=== PATIENT | female | born 1955 | race Caucasian/White ===

== ENCOUNTER 2020-08-18 06:57 | Outpatient (NON) | payer MEDICARE, SELFPAY ==
[2020-08-18 20:03] LABS: SARS-CoV-2 RNA PCR Negative
== END 2020-08-18 06:58 ==
PROVIDERS: PCP Family Medicine Adolescent Medicine; Visit Provider Physician Assistant
DX: R05 Cough (principal); Z20.828 Contact with and (suspected) exposure to other viral communicable diseases
CPT/HCPCS: 87635; C9803; U0003

== ENCOUNTER 2020-08-25 12:55 | Outpatient (CLI) | payer MEDICARE, SELFPAY ==
[2020-08-25 14:10] LABS: Cholesterol 151 mg/dL (0-200); HDL Direct 61 mg/dL; Triglycerides 104 mg/dL (<150)
[2020-08-25 14:22] LABS: LDL Cholesterol Direct 75 mg/dL
[2020-08-25 14:42] LABS: Thyroid Stimulating Hormone 0.512 uIU/mL (0.465-4.680)
== END 2020-08-25 12:56 | disposition home or self-care (01) ==
PROVIDERS: PCP Family Medicine Adolescent Medicine; Visit Provider Family Medicine Adolescent Medicine
DX: E78.2 Mixed hyperlipidemia (principal); E03.9 Hypothyroidism, unspecified
CPT/HCPCS: 36415; 80061; 84443

== ENCOUNTER 2020-12-22 10:13 | Outpatient (CLI) | payer MEDICARE, SELFPAY ==
--- NOTE | ~2020-12-22 | MM_ITS ---
EXAMINATION: MM screening miryam RT w todd HISTORY: Screening. Left breast mastectomy for breast cancer. TECHNIQUE: Craniocaudal and mediolateral oblique 3-D tomosynthesis images were obtained and synthetic 2-D images were generated. CAD analysis was submitted and interpreted. COMPARISON: Comparison to multiple prior studies sequentially, with oldest reviewed study dated 07/25. BREAST PARENCHYMAL COMPOSITION: There are scattered areas of fibroglandular density. FINDINGS: Developing asymmetry mid lateral aspect of the right breast. There are no suspicious calcif ications or architectural distortion. IMPRESSION: 1. Focal asymmetry mid lateral aspect of the right breast. 2. Additional mammographic views and possible breast ultrasound are recommended. BI-RADS Category 0: Incomplete: Needs additional imaging evaluation. Reviewed, dictated and finalized at location A. UM PREPARATOR IMPRESSION: 1. Focal asymmetry mid lateral aspect of the right breast. 2. Additional mammographic views and possible breast ultrasound are recommended . BI-RADS Category 0: Incomplete: Needs additional imaging evaluation.
== END 2020-12-22 10:14 | disposition home or self-care (01) ==
LOC: ANHIMG 10:17
PROVIDERS: PCP Family Medicine Adolescent Medicine; Visit Provider Internal Medicine Hematology & Oncology
DX: Z12.31 Encounter for screening mammogram for malignant neoplasm of breast (principal); R92.8 Other abnormal and inconclusive findings on diagnostic imaging of breast
CPT/HCPCS: 77063; 77067

== ENCOUNTER 2021-02-05 12:42 | Outpatient (CLI) | payer MEDICARE, SELFPAY ==
--- NOTE | ~2021-02-05 | MMUS_ITS ---
EXAMINATION: MM diagnostic mammo unilat RT, US breast RT limited HISTORY: Focal asymmetry in the mid lateral right breast on 12/22/2020 screening mammogram TECHNIQUE: Additional 3-D tomosynthesis images of the right breast were performed and synthetic 2-D i mages were generated. Rolled medial and rolled lateral craniocaudal views of right breast. CAD analys is was submitted and interpreted. High resolution upper outer and lower-outer quadrants right breast ultrasound was performed. COMPARISON: 12/22/2020 right digital mammogram FINDINGS: MAMMOGRAPHIC FINDINGS: Possible spiculated mass approximately 5 mm dimension with a couple of benign-appearing central calci fications is suggested in the outer mid right breast (mL Tomosynthesis image 10/62). The spiculated m ass is not confirmed on other MLO and cc views and may simply represent fibroglandular stroma. There is mildly nodular appearing fibroglandular stroma. Ultrasound of the upper outer and lower-outer quadrants of the right breast was therefore performed. ULTRASOUND: No suspicious mass or shadowing, cyst or other significant sonographic abnormalities detected in the outer half of the right breast. IMPRESSION: 1. No mammographic evidence of malignancy 2. Routine annual mammographic screening is recommended. BI-RADS Category 2: Benign finding(s). Reviewed, dictated and finalized at location A. HER WRINGER OPERATOR IMPRESSION: 1. No mammographic evidence of malignancy 2. Routine annual mammographic screening is recommended. BI-RADS Category 2: Benign finding(s).
== END 2021-02-05 12:43 | disposition home or self-care (01) ==
PROVIDERS: PCP Family Medicine Adolescent Medicine; Visit Provider Internal Medicine Hematology & Oncology
DX: R92.8 Other abnormal and inconclusive findings on diagnostic imaging of breast (principal)
CPT/HCPCS: 76642; 77065

== ENCOUNTER → 2021-03-22 04:07 | Outpatient (CLI) | payer MEDICARE, SELFPAY ==
[2021-03-22 19:57] LABS: SARS-CoV-2 RNA PCR Negative
== END ==
PROVIDERS: PCP Family Medicine Adolescent Medicine; Visit Provider Surgery
DX: Z01.812 Encounter for preprocedural laboratory examination (principal); Z20.822 Contact with and (suspected) exposure to COVID-19
CPT/HCPCS: C9803; U0003; U0005

== ENCOUNTER 2021-03-22 11:29 | Outpatient (CLI) | payer MEDICARE, SELFPAY ==
--- NOTE | 2021-03-22 11:33 | ECG_ITS ---
Measurements Intervals [place] Rate: 71 P: 50 SC: 186 QRS: 15 QRSD: 91 T: 67 QT: 416 QTc: 455 Interpretive Statements SINUS RHYTHM INCOMPLETE RIGHT BUNDLE BRANCH BLOCK BASELINE ARTIFACT- I, III, AVL, V1 BORDERLINE ECG Electronically Signed On 03-22-2021 11:55:36 CDT by Jhonny Brice D.O.
[2021-03-22 13:30] LABS: Basophils Absolute Auto 0.1 K/mm3 (0.0-0.1); Basophils Percent Auto 0.5 % (0.2-1.2); Eosinophils Absolute Auto 0.3 K/mm3 (0-0.3); Eosinophils Percent Auto 3.1 % (0-4.4); Hematocrit 43.3 % (37.0-47.0); Hemoglobin 14.9 g/dL (12.0-15.0); Immature Granulocyte Absolute 0.04 K/mm3 (0.00-0.031); Immature Granulocyte Percent A 0.4 % (0-0.5); Lymphocytes Absolute Auto 4.37 K/mm3 (0.9-3.2); Lymphocytes Percent Auto 43.2 % (18.3-44.2); Mean Corpuscular HGB Conc 34.4 g/dl (32-36); Mean Corpuscular Hemoglobin 33.8 pg (26-34); Mean Corpuscular Volume 98.2 fl (80-100); Mean Platelet Volume 9.7 fl (7.4-10.4); Monocytes Absolute Auto 0.9 K/mm3 (0.1-0.6); Monocytes Percent Auto 8.6 % (2.6-8.5); Neutrophils Absolute Auto 4.5 K/mm3 (1.3-6.7); Neutrophils Percent Auto 44.2 % (45.5-73.1); Platelet Count Result 261 k/mm3 (150-375); Red Blood Count 4.41 M/mm3 (4.2-5.4); Red Cell Distribution Width 12.2 % (11.5-14.5); White Blood Count 10.1 K/mm3 (4.5-10.0)
[2021-03-22 13:44] LABS: INR 0.9; Prothrombin Time 12.7 Seconds (11.1-14.7)
[2021-03-22 13:45] LABS: Partial Thromboplastin Time 31.8 SECONDS (22.3-36.8)
== END 2021-03-22 11:30 | disposition home or self-care (01) ==
LOC: ANHSURGERY 11:32
PROVIDERS: PCP Family Medicine Adolescent Medicine; Visit Provider Surgery
DX: Z01.818 Encounter for other preprocedural examination (principal); C50.919 Malignant neoplasm of unspecified site of unspecified female breast; I45.10 Unspecified right bundle-branch block; Z51.81 Encounter for therapeutic drug level monitoring; Z79.899 Other long term (current) drug therapy
CPT/HCPCS: 36415; 85025; 85610; 85730; 93005; C9803; U0003; U0005

== ENCOUNTER 2021-03-25 01:28 | Day surgery (SDC) | payer MEDICARE, SELFPAY ==
[2021-03-19 09:43] VITALS: BMI 26.6
--- NOTE | 2021-03-25 12:01 | SUR.PREOP ---
PT STATES SHE IS HAVING HER PORTACATH REMOVED. NOT INSERTED. CALLED JUANJOSE Cotter, SPORTS LAWYER AND [employer]ER [employer]URE RN
[2021-03-25 12:03] VITALS: BP 119/59; PULSE 94; RESP 20; TEMP 36.3; O2SAT 99; BMI 27.4
--- NOTE | 2021-03-25 12:25 | SUR.PREOP ---
PT STATES SHE DOES NOT NEED A LIMB ALERT.
[2021-03-25] MEDS: LACTATED RINGERS 1,000 ML 30 ML IV CONT (12:26)
[2021-03-25] MEDS: KETOROLAC 15 MG/ML VIAL (*BKC) IV PUSH (12:26)
--- NOTE | 2021-03-25 12:30 | SUR.PREOP ---
DR GOODSON IN TO SPEAK TO PT
--- NOTE | 2021-03-25 12:42 | PM.IMHP ---
H&P: HPI History of Present Illness Date/Time: 03/25/21 12:42 Pt is a 65 y/o F presenting for removal of R SCV VAD. Pt had VAD placed in late 2016 for adjuvant chemotx for L breast cancer. Pt reports she has had no issues c VAD, and last had it flushed about 1 mo ago. Chief Complaint: L breast cancer Review of Systems Review of Systems: All systems reviewed & are unremarkable except as noted in HPI and below PMFSH Past Medical History Medical History (Updated 03/25/21 @ 12:45 by Malcom Thomas MD) Hyperlipidemia Hypertension Hypothyroid Family History Family History Other Family history of malignant neoplasm Hypertension Social History Social History Smoking packs per day: 0.5 Smoking cigarettes per day: 10.0 Years smoked: 30 Smoking pack-years: 15.00 Smoking status: Current every day smoker Tobacco type: cigarettes Alcohol intake: never Substance use: never Substance use type: does not use Living arrangements: with family Spiritual care concerns: No Meds Home Medications and Allergies Home Medications Medication Instructions Recorded Confirmed Type levothyroxine 175 mcg PO HS 09/13/19 03/25/21 History metoprolol tartrate 50 mg PO BID 09/13/19 03/25/21 History trazodone 150 mg PO HS 09/13/19 03/25/21 History acetaminophen 1,300 mg PO DAILY 03/19/21 03/25/21 History anastrozole 1 mg PO HS 03/19/21 03/25/21 History atorvastatin 20 mg PO HS 03/19/21 03/25/21 History calcium 600 mg PO HS 03/19/21 03/19/21 History ferrous sulfate [FeroSul] 325 mg PO HS 03/19/21 03/25/21 History Allergies Allergy/AdvReac Type Severity Reaction Status Date / Time Penicillins Allergy Unknown Swelling Verified 03/25/21 11:45 Vital Signs Vital Signs - 24 hr 03/25/21 12:03 Temperature 36.3 C L Pulse Rate 94 Respiratory Rate 20 Blood Pressure 119/59 L Pulse Oximetry 99 Exam Const: General: cooperative, comfortable and no acute distress Orientation/consciousness: patient oriented x3 Limitations: no limitations Chest: Other: R chest VAD - C/D/I Resp: Effort & Inspection: normal respiratory effort Auscultation: clear to auscultation bilaterally Cardio: Rate: regular rate Rhythm: regular rhythm GI: Inspection: normal to inspection GI Palp: Yes Soft to palpation and No Tenderness to palpation present (GI) Assessment and Plan Assessment and plan (1) Malignant neoplasm of upper-inner quadrant of left breast in female, estrogen receptor positive: Code(s): C50.212 - Malignant neoplasm of upper-inner quadrant of left female breast; Z17.0 - Estrogen receptor positive status [ER+] Status: Acute Assessment and Plan: s/p adjvant chemotx, will remove VAD
--- NOTE | 2021-03-25 12:47 | WPDHPUPDATE1 ---
History and Physical Update Update Date/Time: 03/25/21 12:47 History and Physical has been reviewed, including an updated exam of the patient. There are NO changes in the patient's condition. Risks, benefits, and alternatives have been discussed and questions answered. Patient agrees to proceed with procedure.
--- NOTE | 2021-03-25 12:49 | WPDANESEPPF ---
Anes - Initial Pre Proc Eval Procedure: Operation Date: 03/25/21 13:30 Proposed Procedures p Insertion Leeanna Cath - Anya Bojorquez MD Date/Time: 03/25/21 12:49 Surgeon: Anya Bojorquez MD Pre Op Diagnosis: Breast CA Patient Data Age: 65 Gender: F Height: 5 ft 5 in Weight: 74.9 kg Last Vital Signs Temp 97.4 F L 03/25/21 12:03 Pulse 94 03/25/21 12:03 Resp 20 03/25/21 12:03 BP 119/59 L 03/25/21 12:03 Pulse Ox 99 03/25/21 12:03 Allergies Allergy/AdvReac Type Severity Reaction Status Date / Time Penicillins Allergy Unknown Swelling Verified 03/25/21 11:45 Home Medications Medication Instructions Recorded Confirmed Type levothyroxine 175 mcg PO HS 09/13/19 03/25/21 History metoprolol tartrate 50 mg PO BID 09/13/19 03/25/21 History trazodone 150 mg PO HS 09/13/19 03/25/21 History acetaminophen 1,300 mg PO DAILY 03/19/21 03/25/21 History anastrozole 1 mg PO HS 03/19/21 03/25/21 History atorvastatin 20 mg PO HS 03/19/21 03/25/21 History calcium 600 mg PO HS 03/19/21 03/19/21 History ferrous sulfate [FeroSul] 325 mg PO HS 03/19/21 03/25/21 History Patient hx anesthesia problems: none Family hx anesthesia problems: none PMFSH Past Medical History Medical History (Updated 03/25/21 @ 12:45 by Malcom Thomas MD) Hyperlipidemia Hypertension Hypothyroid Family History Family History Other Family history of malignant neoplasm Hypertension Social History Social History Smoking packs per day: 0.5 Smoking cigarettes per day: 10.0 Years smoked: 30 Smoking pack-years: 15.00 Smoking status: Current every day smoker Tobacco type: cigarettes Alcohol intake: never Substance use: never Substance use type: does not use Living arrangements: with family Spiritual care concerns: No Anes - Eval Final PreProcedure Day of Procedure 03/25/21 12:49 Patient weight: overweight Heart: regular rate and rhythm Lungs: clear to auscultation Airway: Mallampati scale class II Neurological: alert and oriented Last oral intake: >/= 8 hours ASA classification: III Emergent: no Anesthetic plan: proceed Anesthesia type and monitoring: general GIVS and standard monitoring Informed Consent: The patient's anesthetic plan and its attendant risks and benefits were discussed with the patient/family/POA. Questions were solicited and answers provided to the satisfaction of the patient/family/POA.
[2021-03-25] MEDS: CLINDAMYCIN 900 MG/D5W 50 ML 900 MG/50 ML PIGGYBACK 50 MG IVPB (13:00)
[2021-03-25] MEDS: BUPIVACAINE/EPINEPHRINE 0.5% 30 ML VIAL INFILTRATE (13:10)
[2021-03-25 13:28] VITALS: BP 90/61; PULSE 79; RESP 14; O2SAT 94
--- NOTE | 2021-03-25 13:40 | PM.PROC ---
Procedure Note - Detailed Date of procedure: 03/25/21 Pre-op diagnosis: Breast CA Post-op diagnosis: same Procedure performed: Removal right chest venous access device Description of procedure: The patient was taken to the operating room placed in the supine position. After adequate induction of MAC anesthesia, the patient was prepped and draped in the normal sterile fashion. A time-out was then done to verify the patient's identity, as well as the procedure being performed. I began by localizing the previous incision line in the right chest and around the port itself. Once this was done, I made an incision through the old incision to the level of the port. I then bluntly dissected around the port, and located the 2 sutures holding the port in place. I then cut the 2 sutures and removed the port from the pocket. I was then able to remove the port and catheter in full. The catheter was noted in the right subclavian vein. I then held pressure at the level of the right subclavian vein for approximately 5 minutes. Hemostasis was noted after pressure was held. I then localized the pocket further and closed the subcutaneous tissue with 3 0 Vicryl suture. I then closed the skin with 4 O Monocryl subcuticular suture. Dermabond was then placed on the wound. The patient tolerated the procedure well, was alert and awake in the operating room postoperatively, and will be transferred to the recovery in stable condition. Implants: none Anesthesia: MAC and local Surgeon: Anya Bojorquez MD Estimated blood loss (mL): 5 Drains: No Packing: No Pathology: none sent Complications: No immediate complications Condition: stable Disposition: PACU Findings: right-sided VAD
[2021-03-25 13:45] VITALS: BP 107/54; PULSE 70; RESP 14
[2021-03-25 14:10] VITALS: BP 112/58; PULSE 65; RESP 14
== END 2021-03-25 14:22 | disposition home or self-care (01) ==
PROVIDERS: PCP Family Medicine Adolescent Medicine; Visit Provider Surgery
PROC: (CPT 36590; principal; 2021-03-25 13:30)
DX: C50.212 Malignant neoplasm of upper-inner quadrant of left female breast (principal); Z45.2 Encounter for adjustment and management of vascular access device; E78.5 Hyperlipidemia, unspecified; I10 Essential (primary) hypertension; F17.210 Nicotine dependence, cigarettes, uncomplicated; E03.9 Hypothyroidism, unspecified; Z17.0 Estrogen receptor positive status [ER+]
CPT/HCPCS: 36590; J1885; J2250; J2704; J3010; J7120

== ENCOUNTER 2021-08-27 08:56 | Outpatient (CLI) | payer MEDICARE, SELFPAY ==
[2021-08-27 10:19] LABS: Alanine Aminotransferase 42 U/L (4-35); Albumin Level 4.4 g/dL (3.5-5.1); Alkaline Phosphatase 106 U/L (38-126); Anion Gap 7 mmol/L (8-16); Aspartate Amino Transferase 34 U/L (14-36); Bilirubin,Total 0.2 mg/dL (0.2-1.3); Blood Urea Nitrogen 10 mg/dL (7-17); Calcium 9.5 mg/dL (8.4-10.2); Carbon Dioxide 28 mmol/L (22-30); Chloride 106 mmol/L (98-107); Cholesterol 204 mg/dL (0-200); Estimated Glomerular Filt Rate > 60; Glucose 111 mg/dL (65-110); HDL Direct 63 mg/dL; Potassium 4.7 mmol/L (3.4-5.0); Sodium 141 mmol/L (137-145); Triglycerides 182 mg/dL (<150)
[2021-08-27 10:30] LABS: LDL Cholesterol Direct 102 mg/dL
[2021-08-27 10:49] LABS: Thyroid Stimulating Hormone 0.021 uIU/mL (0.465-4.680)
== END 2021-08-27 08:57 | disposition home or self-care (01) ==
PROVIDERS: PCP Family Medicine Adolescent Medicine; Visit Provider Physician Assistant
DX: E03.8 Other specified hypothyroidism (principal); E78.2 Mixed hyperlipidemia; I10 Essential (primary) hypertension
CPT/HCPCS: 36415; 80053; 80061; 84443

== ENCOUNTER 2021-09-11 10:27 | Outpatient (CLI) | payer MEDICARE, SELFPAY ==
--- NOTE | ~2021-09-11 | MR_ITS ---
EXAMINATION: MR lumbar spine wo con DATE: 09/11/2021 11:35 INDICATION: Low back pain. Right-sided sciatica. TECHNIQUE: Magnetic resonance imaging (MRI) of the lumbar spine was performed without intravenous con trast. Sequences included sagittal T2-weighted FSE, sagittal T2-weighted FS FSE, sagittal T1-weighted FSE, and axial T2-weighted FSE. COMPARISON: None FINDINGS: Bone alignment is normal. Vertebral body heights are normal. There is mildly decreased disc height at L1-L2. The distal spinal cord signal intensity is normal. The conus medullaris is at L1. T he following disc levels are specifically discussed: L1-L2: The disc is bulging and has an annular fissure. There is mild bilateral facet joint osteoarthr itis. There is mild bilateral neural foraminal stenosis. There is mild central canal stenosis. L2-L3: The disc is bulging. There is severe bilateral facet joint osteoarthritis. There is mild bilat eral neural foraminal stenosis. There is mild central canal stenosis. L3-L4: The disc is bulging. There is moderate right and severe left facet joint osteoarthritis. There is mild bilateral neural foraminal stenosis. There is mild central canal stenosis. L4-L5: The disc is bulging and has an annular fissure. There is severe bilateral facet joint osteoart hritis. There is moderate bilateral neural foraminal stenosis. There is mild central canal stenosis. L5-S1: The disc does not extend beyond the endplate margin. There is severe right and moderate left f acet joint osteoarthritis. There is mild right neural foraminal stenosis. There is no central canal s tenosis. IMPRESSION: 1. Moderate lumbar spondylosis. Reviewed, dictated and finalized at location A.
== END 2021-09-11 10:28 | disposition home or self-care (01) ==
PROVIDERS: PCP Family Medicine Adolescent Medicine; Visit Provider Physician Assistant
DX: M54.31 Sciatica, right side (principal); M47.817 Spondylosis without myelopathy or radiculopathy, lumbosacral region; M48.07 Spinal stenosis, lumbosacral region
CPT/HCPCS: 72148

== ENCOUNTER 2022-02-07 00:12 | Day surgery (SDC) | payer MEDICARE, SELFPAY ==
[2021-12-27 15:08] VITALS: BMI 25.9
--- NOTE | 2022-01-27 14:34 | PC.NURSE ---
Completed phone call for rescheduled date of 02/07/22. No new health history.
--- NOTE | 2022-02-04 15:33 | PM.HPGS ---
History of Present Illness History of Present Illness Consent: Risks, benefits, and alternatives have been discussed and questions answered. Patient agrees to proceed with procedure. Chief complaint: neoplasm screening Narrative: Emmy Higgins is a 66 year old female referred for colon cancer screening Review of Systems Review of Systems: All systems reviewed & are unremarkable except as noted in HPI and below PMFSH Past Medical History Medical History Hyperlipidemia Hypertension Hypothyroid Port-A-Cath in place Family History Family History Other Family history of malignant neoplasm Hypertension Social History Social History Smoking packs per day: 0.5 Smoking cigarettes per day: 10.0 Years smoked: 30 Smoking pack-years: 15.00 Smoking status: Current every day smoker Tobacco type: cigarettes Alcohol intake: never Substance use: never Substance use type: does not use Living arrangements: with family Spiritual care concerns: No Meds Home Medications and Allergies Home Medications Medication Instructions Recorded Confirmed Type levothyroxine 175 mcg PO HS 09/13/19 12/27/21 History trazodone 150 mg PO HS 09/13/19 12/27/21 History acetaminophen 1,300 mg PO DAILY PRN 03/19/21 12/27/21 History anastrozole 1 mg PO HS 03/19/21 12/27/21 History atorvastatin 20 mg PO HS 03/19/21 12/27/21 History calcium 600 mg PO HS 03/19/21 12/27/21 History ferrous sulfate [FeroSul] 650 mg PO HS 03/19/21 12/27/21 History quetiapine 100 mg tablet 100 mg PO DAILY #30 tablet 12/31/21 01/27/22 Rx metoprolol tartrate 50 mg tablet 50 mg PO BID #60 tablet 02/06/22 Rx Allergies Allergy/AdvReac Type Severity Reaction Status Date / Time Penicillins Allergy Unknown Swelling Verified 02/07/22 10:33 Exam Resp: Auscultation: clear to auscultation bilaterally Cardio: Rate: regular rate Rhythm: regular rhythm GI: GI Palp: Yes Soft to palpation and No Tenderness to palpation present (GI) Assessment and Plan Assessment and plan (1) Colon cancer screening: Code(s): Z12.11 - Encounter for screening for malignant neoplasm of colon Status: Acute Assessment and Plan: Colonoscopy with possible biopsy or polypectomy or cautery or injection of substances.
[2022-02-07 10:34] VITALS: BP 144/92; PULSE 99; RESP 18; TEMP 36.1; O2SAT 97; BMI 26.1
[2022-02-07] MEDS: LACTATED RINGERS 1,000 ML 150 ML IV CONT (10:43)
--- NOTE | 2022-02-07 10:53 | WPDANESEPPF ---
Anes - Initial Pre Proc Eval Procedure: Operation Date: 02/07/22 11:15 Proposed Procedures p Screening Colonoscopy - Harsha Hsu MD Date/Time: 02/07/22 10:53 Surgeon: Harsha Hsu MD Pre Op Diagnosis: neoplasm screening Patient Data Age: 66 Gender: F Height: 1.68 m Weight: 73.5 kg Last Vital Signs Temp 36.1 C L 02/07/22 10:34 Pulse 99 02/07/22 10:34 Resp 18 02/07/22 10:34 BP 144/92 H 02/07/22 10:34 Pulse Ox 97 02/07/22 10:34 Allergies Allergy/AdvReac Type Severity Reaction Status Date / Time Penicillins Allergy Unknown Swelling Verified 02/07/22 10:33 Home Medications Medication Instructions Recorded Confirmed Type levothyroxine 175 mcg PO HS 09/13/19 12/27/21 History trazodone 150 mg PO HS 09/13/19 12/27/21 History acetaminophen 1,300 mg PO DAILY PRN 03/19/21 12/27/21 History anastrozole 1 mg PO HS 03/19/21 12/27/21 History atorvastatin 20 mg PO HS 03/19/21 12/27/21 History calcium 600 mg PO HS 03/19/21 12/27/21 History ferrous sulfate [FeroSul] 650 mg PO HS 03/19/21 12/27/21 History quetiapine 100 mg tablet 100 mg PO DAILY #30 tablet 12/31/21 01/27/22 Rx metoprolol tartrate 50 mg tablet 50 mg PO BID #60 tablet 02/06/22 Rx Patient hx anesthesia problems: none Family hx anesthesia problems: none Results Review: All pre-operative results and documents have been reviewed as part of the pre-operative evaluation. [facility] Past Medical History Medical History (Updated 02/07/22 @ 10:53 by Darnell Mayberry MD) Hyperlipidemia Hypertension Hypothyroid Port-A-Cath in place Family History Family History Other Family history of malignant neoplasm Hypertension Social History Social History Smoking packs per day: 0.5 Smoking cigarettes per day: 10.0 Years smoked: 30 Smoking pack-years: 15.00 Smoking status: Current every day smoker Tobacco type: cigarettes Alcohol intake: never Substance use: never Substance use type: does not use Living arrangements: with family Spiritual care concerns: No Anes - Eval Final PreProcedure Day of Procedure 02/07/22 10:53 Patient weight: overweight Heart: regular rate and rhythm Lungs: clear to auscultation Airway: Mallampati scale class II Neurological: alert and oriented Last oral intake: >/= 8 hours ASA classification: III Emergent: no Anesthetic plan: proceed Anesthesia type and monitoring: general GIVS and standard monitoring Results Review: All pre-operative results and documents have been reviewed as part of the pre-operative evaluation. Informed Consent: The patient's anesthetic plan and its attendant risks and benefits were discussed with the patient/family/POA. Questions were solicited and answers provided to the satisfaction of the patient/family/POA.
[2022-02-07 11:41] VITALS: BP 110/54; PULSE 68; RESP 20; O2SAT 92
[2022-02-07 11:51] VITALS: BP 116/59; PULSE 68; RESP 20; O2SAT 93
[2022-02-07 12:01] VITALS: BP 123/45; PULSE 70; RESP 22; O2SAT 98
== END 2022-02-07 12:20 | disposition home or self-care (01) ==
PROVIDERS: PCP Family Medicine Adolescent Medicine; Visit Provider Internal Medicine Gastroenterology
PROC: 0DJD8ZZ Inspection of Lower Intestinal Tract, Via Natural or Artificial Opening Endoscopic (ICD-10-PCS; CPT 45378; principal; 2022-02-07 11:15)
DX: Z12.11 Encounter for screening for malignant neoplasm of colon (principal); K57.30 Diverticulosis of large intestine without perforation or abscess without bleeding; K63.5 Polyp of colon; E03.9 Hypothyroidism, unspecified; I10 Essential (primary) hypertension; E78.5 Hyperlipidemia, unspecified; Z87.891 Personal history of nicotine dependence
CPT/HCPCS: 45385; 88305; J2001; J2704; J7120

== ENCOUNTER 2022-03-09 15:30 | Outpatient (CLI) | payer MEDICARE, SELFPAY ==
--- NOTE | ~2022-03-09 | MM_ITS ---
EXAMINATION: MM screening miryam RT w todd HISTORY: Screening TECHNIQUE: Craniocaudal and mediolateral oblique 3-D tomosynthesis images were obtained and synthetic 2-D images were generated. CAD analysis was submitted and interpreted. COMPARISON: Comparison to multiple prior studies sequentially, with oldest reviewed study dated 07/10. BREAST PARENCHYMAL COMPOSITION: There are scattered areas of fibroglandular density. FINDINGS: There is no evidence of suspicious mass, calcification, or architectural distortion to sugg est malignancy in the right breast. There has been no suspicious interval change. IMPRESSION: 1. No mammographic evidence of malignancy. 2. Recommend routine screening mammography in one year. BI-RADS Category 1: Negative Reviewed, dictated and finalized at location A.
== END 2022-03-09 15:31 | disposition home or self-care (01) ==
LOC: ANHIMG 15:33
PROVIDERS: PCP Family Medicine Adolescent Medicine; Visit Provider Internal Medicine Hematology & Oncology
DX: Z12.31 Encounter for screening mammogram for malignant neoplasm of breast (principal)
CPT/HCPCS: 77063; 77067

== ENCOUNTER 2022-10-14 08:40 | Outpatient (CLI) | payer MEDICARE, SELFPAY ==
[2022-10-14 09:37] LABS: Alanine Aminotransferase 27 U/L (6-35); Albumin Level 4.4 g/dL (3.5-5.1); Alkaline Phosphatase 130 U/L (38-126); Anion Gap 9 mmol/L (8-16); Aspartate Amino Transferase 32 U/L (14-36); Bilirubin,Total 0.4 mg/dL (0.2-1.3); Blood Urea Nitrogen 9 mg/dL (7-17); Calcium 9.3 mg/dL (8.4-10.2); Carbon Dioxide 23 mmol/L (22-30); Chloride 111 mmol/L (98-107); Cholesterol 181 mg/dL (0-200); Estimated Glomerular Filt Rate > 60; Glucose 124 mg/dL (65-110); HDL Direct 64 mg/dL; Potassium 4.2 mmol/L (3.4-5.0); Sodium 143 mmol/L (137-145); Triglycerides 108 mg/dL (<150)
[2022-10-14 09:48] LABS: LDL Cholesterol Direct 75 mg/dL
[2022-10-14 10:11] LABS: Thyroid Stimulating Hormone 0.102 uIU/mL (0.465-4.680)
[2022-10-14 11:09] LABS: Appearance Urine Clear (Clear); Bilirubin Urine Negative (Negative); Blood Urine Trace-lysed (Negative); Color Urine Yellow (Yellow); Glucose Urine UA Negative (Negative); Ketones Urine Negative (Negative); Leukocyte Esterase Ur Negative LEU/UL (Negative); Nitrate Urine Negative (Negative); Protein Urine Negative (Negative); Specific Grav Ur <= 1.005 (1.001-1.035); Urobilinogen Urine 0.2 mg/dL (<2.0); pH Urine 5.5 (5.0-9.0)
[2022-10-14 11:16] LABS: Add Urine Microscopic? YES; Bacteria Urine Trace /hpf; Mucus Urine Rare /lpf; RBC Urine 0-2 /hpf (0-2); Squamous Epithelial Cell Urine Occasional /hpf (Few); WBC Urine 0-3 /hpf
== END 2022-10-14 08:41 | disposition home or self-care (01) ==
PROVIDERS: PCP Family Medicine Adolescent Medicine; Visit Provider Physician Assistant
DX: E03.9 Hypothyroidism, unspecified (principal); E78.5 Hyperlipidemia, unspecified; M54.50 Low back pain, unspecified
CPT/HCPCS: 36415; 80053; 80061; 81001; 84443

== ENCOUNTER 2023-03-13 10:30 | Outpatient (CLI) | payer MEDICARE, SELFPAY ==
--- NOTE | ~2023-03-13 | MM_ITS ---
EXAMINATION: MM screening miryam RT w todd HISTORY: Screening right mammogram, history of left breast cancer TECHNIQUE: Craniocaudal and mediolateral oblique 3-D tomosynthesis images were obtained and synthetic 2-D images were generated. CAD analysis was submitted and interpreted. COMPARISON: 03/09/2022, 02/05/2021, 12/22/2020, 08/12/2019 BREAST PARENCHYMAL COMPOSITION: There are scattered areas of fibroglandular density. FINDINGS: No suspicious mass, calcification, or architectural distortion are identified to suggest ma lignancy. There has been no suspicious interval change.. IMPRESSION: 1. No mammographic evidence of malignancy. 2. Recommend routine screening mammography in one year. BI-RADS Category 1: Negative Reviewed, dictated and finalized at location A.
== END 2023-03-13 10:31 | disposition home or self-care (01) ==
PROVIDERS: PCP Family Medicine Adolescent Medicine; Visit Provider Internal Medicine Hematology & Oncology
DX: Z12.31 Encounter for screening mammogram for malignant neoplasm of breast (principal)
CPT/HCPCS: 77063; 77067

== ENCOUNTER 2023-05-24 11:33 | Outpatient (CLI) | payer MEDICARE, SELFPAY ==
[2023-05-24 11:48] LABS: Basophils Percent Auto 0.3 % (0.2-1.2); Eosinophils Absolute Auto 0.3 K/mm3 (0-0.3); Eosinophils Percent Auto 2.2 % (0-4.4); Hematocrit 46.2 % (37.0-47.0); Hemoglobin 16.2 g/dL (12.0-15.0); Immature Granulocyte Absolute 0.04 K/mm3 (0.00-0.031); Immature Granulocyte Percent A 0.3 % (0-0.5); Lymphocytes Absolute Auto 4.12 K/mm3 (0.9-3.2); Lymphocytes Percent Auto 34.7 % (18.3-44.2); Mean Corpuscular HGB Conc 35.1 g/dl (32-36); Mean Corpuscular Hemoglobin 34.6 pg (26-34); Mean Corpuscular Volume 98.7 fl (80-100); Monocytes Absolute Auto 0.9 K/mm3 (0.1-0.6); Monocytes Percent Auto 7.7 % (2.6-8.5); Neutrophils Absolute Auto 6.5 K/mm3 (1.3-6.7); Neutrophils Percent Auto 54.8 % (45.5-73.1); Platelet Count Result 297 k/mm3 (150-375); Red Blood Count 4.68 M/mm3 (4.2-5.4); Red Cell Distribution Width 12.1 % (11.5-14.5); White Blood Count 11.9 K/mm3 (4.5-10.0)
[2023-05-24 14:13] LABS: Creatinine Urine 44.8 mg/dL
[2023-05-24 14:15] LABS: Alanine Aminotransferase 28 U/L (6-35); Albumin Level 4.8 g/dL (3.5-5.1); Alkaline Phosphatase 121 U/L (38-126); Anion Gap 8 mmol/L (8-16); Aspartate Amino Transferase 26 U/L (14-36); Bilirubin,Total 0.6 mg/dL (0.2-1.3); Blood Urea Nitrogen 12 mg/dL (7-17); Calcium 9.4 mg/dL (8.4-10.2); Carbon Dioxide 25 mmol/L (22-30); Chloride 101 mmol/L (98-107); Cholesterol 209 mg/dL (0-200); Estimated Glomerular Filt Rate > 60; Glucose 109 mg/dL (65-110); HDL Direct 65 mg/dL; Potassium 4.2 mmol/L (3.4-5.0); Sodium 134 mmol/L (137-145); Triglycerides 152 mg/dL (<150)
[2023-05-24 14:26] LABS: LDL Cholesterol Direct 94 mg/dL
[2023-05-24 15:13] LABS: MALB Creatinine Ratio < 13.4 mg/g (0-30); Microalbumin Urine Random < 6.0 mg/L (0-16.7)
== END 2023-05-24 11:34 | disposition home or self-care (01) ==
LOC: ANHLAB 11:35
PROVIDERS: Nurse Practitioner Family; PCP Family Medicine Adolescent Medicine; Visit Provider Family Medicine Adolescent Medicine
DX: E03.9 Hypothyroidism, unspecified (principal); E78.5 Hyperlipidemia, unspecified; H93.19 Tinnitus, unspecified ear
CPT/HCPCS: 36415; 80053; 80061; 82043; 84443; 85025

== ENCOUNTER 2023-12-06 09:54 | Outpatient (CLI) | payer OTHER, SELFPAY ==
[2023-12-06 10:15] LABS: Basophils Absolute Auto 0.1 K/mm3 (0.0-0.1); Basophils Percent Auto 0.7 % (0.2-1.2); Eosinophils Absolute Auto 0.2 K/mm3 (0-0.3); Eosinophils Percent Auto 2.4 % (0-4.4); Hematocrit 45.9 % (37.0-47.0); Hemoglobin 16.1 g/dL (12.0-15.0); Immature Granulocyte Absolute 0.03 K/mm3 (0.00-0.031); Immature Granulocyte Percent A 0.3 % (0-0.5); Lymphocytes Absolute Auto 3.23 K/mm3 (0.9-3.2); Lymphocytes Percent Auto 36.7 % (18.3-44.2); Mean Corpuscular HGB Conc 35.1 g/dl (32-36); Mean Corpuscular Hemoglobin 34.8 pg (26-34); Mean Corpuscular Volume 99.4 fl (80-100); Monocytes Absolute Auto 0.7 K/mm3 (0.1-0.6); Monocytes Percent Auto 8.2 % (2.6-8.5); Neutrophils Absolute Auto 4.6 K/mm3 (1.3-6.7); Neutrophils Percent Auto 51.7 % (45.5-73.1); Platelet Count Result 267 k/mm3 (150-375); Red Blood Count 4.62 M/mm3 (4.2-5.4); Red Cell Distribution Width 11.9 % (11.5-14.5); White Blood Count 8.8 K/mm3 (4.5-10.0)
[2023-12-06 12:46] LABS: Alanine Aminotransferase 23 U/L (6-35); Albumin Level 4.3 g/dL (3.5-5.1); Alkaline Phosphatase 122 U/L (38-126); Anion Gap 11 mmol/L (8-16); Aspartate Amino Transferase 23 U/L (14-36); Bilirubin,Total 0.5 mg/dL (0.2-1.3); Blood Urea Nitrogen 8 mg/dL (7-17); Calcium 9.9 mg/dL (8.4-10.2); Carbon Dioxide 24 mmol/L (22-30); Chloride 104 mmol/L (98-107); Estimated Glomerular Filt Rate > 60; Glucose 136 mg/dL (65-110); Potassium 4.4 mmol/L (3.4-5.0); Sodium 139 mmol/L (137-145)
[2023-12-09 07:46] LABS: CA 15-3 28 U/mL (<32)
== END 2023-12-06 09:55 | disposition home or self-care (01) ==
LOC: ANHLAB 10:02
PROVIDERS: PCP Family Medicine Adolescent Medicine; Visit Provider Internal Medicine Hematology & Oncology
DX: C50.212 Malignant neoplasm of upper-inner quadrant of left female breast (principal); Z17.0 Estrogen receptor positive status [ER+]
CPT/HCPCS: 36415; 80053; 85025; 86300

== ENCOUNTER 2024-02-08 14:08 | Outpatient (CLI) | payer OTHER, SELFPAY ==
[2024-02-08 14:25] LABS: Hematocrit 39.5 % (37.0-47.0); Hemoglobin 13.9 g/dL (12.0-15.0); Mean Corpuscular HGB Conc 35.2 g/dl (32-36); Mean Corpuscular Hemoglobin 34.2 pg (26-34); Mean Corpuscular Volume 97.3 fl (80-100); Mean Platelet Volume 8.7 fl (7.4-10.4); Platelet Count Result 327 k/mm3 (150-375); Red Blood Count 4.06 M/mm3 (4.2-5.4); Red Cell Distribution Width 12.2 % (11.5-14.5); White Blood Count 9.1 K/mm3 (4.5-10.0)
[2024-02-08 16:27] LABS: Alanine Aminotransferase 19 U/L (6-35); Albumin Level 4.3 g/dL (3.5-5.1); Alkaline Phosphatase 111 U/L (38-126); Amylase 55 U/L (30-110); Aspartate Amino Transferase 23 U/L (14-36); Bilirubin,Total 0.5 mg/dL (0.2-1.3); Blood Urea Nitrogen 6 mg/dL (7-17); Carbon Dioxide 23 mmol/L (22-30); Chloride 105 mmol/L (98-107); Estimated Glomerular Filt Rate > 60; Glucose 112 mg/dL (65-110); Lipase 105 U/L (23-300); Potassium 3.6 mmol/L (3.4-5.0)
[2024-02-08 16:33] LABS: Anion Gap 10 mmol/L (8-16); Sodium 138 mmol/L (137-145)
== END 2024-02-08 14:09 | disposition home or self-care (01) ==
LOC: ANHLAB 14:11
PROVIDERS: Nurse Practitioner Family; PCP Family Medicine Adolescent Medicine; Visit Provider Internal Medicine Hematology & Oncology
DX: R10.12 Left upper quadrant pain (principal)
CPT/HCPCS: 36415; 80053; 82150; 83690; 85027

== ENCOUNTER 2024-05-24 13:45 | Outpatient (CLI) | payer OTHER, SELFPAY ==
--- NOTE | ~2024-05-24 | MM_ITS ---
EXAMINATION: MM screening miryam RT w todd HISTORY: Screening mammogram TECHNIQUE: Craniocaudal and mediolateral oblique 3-D tomosynthesis images were obtained and synthetic 2-D images were generated. CAD analysis was submitted and interpreted. COMPARISON: 03/13/2023, 03/09/2022, 02/05/2021 BREAST PARENCHYMAL COMPOSITION:Not Dense. There are scattered areas of fibroglandular density. FINDINGS: No suspicious mass, calcification, or architectural distortion are identified in either raheem ast to suggest malignancy. There has been no suspicious interval change. IMPRESSION: No mammographic evidence of malignancy. Recommend routine screening mammography in one year. BI-RADS Category 1: Negative Reviewed, dictated and finalized at location .
--- NOTE | ~2024-05-24 | DEXA_ITS ---
Bone Density Report Name: PHOENIX KWONG Age: 68 Sex: Female Ethnicity: White Date of : 1955 Indication: postmenopausal; screening for osteoporosis; cancer; Referring Provider: REUBEN HAGEN Study: Bone densitometry was performed. Exam Date: May 24, 2024 Accession number: [id number] Bone Density: Region BMD T-score Z-score Classification AP Spine(L1-L4) 1.276 2.1 4.0 Normal Femoral Neck (Left) 0.879 0.3 1.9 Normal Total Hip (Left) 1.125 1.5 2.9 Normal Femoral Neck (Right) 0.913 0.6 2.2 Normal Total Hip (Right) 1.087 1.2 2.6 Normal Total Hip Mean 1.106 1.4 2.8 Normal World Health Organization criteria for BMD impression classify patients as: Normal (T-score at or above -1.0), Osteopenia (T-score between -1.0 and -2.5), or Osteoporosis (T-score at or below -2.5). 10-year Fracture Risk: FRAX not reported because: All T-scores for Spine Total, Hip Total, Femoral Neck at or above -1.0 Clinical Information Provided by Patient: Smokes Has used the following medications: Calcium Has the following medical conditions: Cancer, Breast Patient maximum height was 66.0 Menopause Age: 61 No regular weight bearing exercise Drinks caffeinated beverages Onset of menses at age 15 Number of children 1 Impression: The patient has normal bone mass. The patient has risk factors, including: smoking. Discussion: BONE DENSITY IS ABOVE THE MINIMUM DESIRABLE LEVEL AT ALL SKELETAL SITES TESTED. This patient?s bone mineral density is above the minimum desirable level (T-score -1.0 or better) at all sites measured. The patient should follow a healthful lifestyle (good nutrition with adequate calcium and vitamin D, and appropriate weight-bearing exercise). Follow-Up: Consider repeating this study in 5 years or sooner if there is some new clinical indication. Reported by: YENNI on 05/24/2024 2:25:00 PM. Reviewed, dictated and finalized at location Curt GUZMAN
== END 2024-05-24 13:46 | disposition home or self-care (01) ==
LOC: ANHIMG 13:49
PROVIDERS: PCP Family Medicine Adolescent Medicine; Visit Provider Nurse Practitioner Family
DX: Z12.31 Encounter for screening mammogram for malignant neoplasm of breast (principal); Z78.0 Asymptomatic menopausal state
CPT/HCPCS: 77063; 77067; 77080

== ENCOUNTER 2024-05-28 08:29 | Outpatient (CLI) | payer OTHER, SELFPAY ==
[2024-05-28 08:50] LABS: Basophils Absolute Auto 0.1 K/mm3 (0.0-0.1); Basophils Percent Auto 0.6 % (0.2-1.2); Eosinophils Absolute Auto 0.3 K/mm3 (0-0.3); Eosinophils Percent Auto 2.8 % (0-4.4); Hematocrit 46.2 % (37.0-47.0); Hemoglobin 15.9 g/dL (12.0-15.0); Immature Granulocyte Absolute 0.02 K/mm3 (0.00-0.031); Immature Granulocyte Percent A 0.2 % (0-0.5); Lymphocytes Absolute Auto 2.98 K/mm3 (0.9-3.2); Lymphocytes Percent Auto 32.8 % (18.3-44.2); Mean Corpuscular HGB Conc 34.4 g/dl (32-36); Mean Corpuscular Volume 98.7 fl (80-100); Mean Platelet Volume 8.9 fl (7.4-10.4); Monocytes Absolute Auto 0.8 K/mm3 (0.1-0.6); Monocytes Percent Auto 8.6 % (2.6-8.5); Platelet Count Result 288 k/mm3 (150-375); Red Blood Count 4.68 M/mm3 (4.2-5.4); Red Cell Distribution Width 12.3 % (11.5-14.5); White Blood Count 9.1 K/mm3 (4.5-10.0)
[2024-05-28 10:05] LABS: Iron 129 ug/dL (37-170)
[2024-05-28 10:11] LABS: Alanine Aminotransferase 25 U/L (6-35); Albumin Level 4.8 g/dL (3.5-5.1); Alkaline Phosphatase 103 U/L (38-126); Anion Gap 10 mmol/L (4-12); Aspartate Amino Transferase 24 U/L (14-36); Bilirubin,Total 0.5 mg/dL (0.2-1.3); Blood Urea Nitrogen 14 mg/dL (7-17); Calcium 9.9 mg/dL (8.4-10.2); Carbon Dioxide 24 mmol/L (22-30); Chloride 105 mmol/L (98-107); Estimated Glomerular Filt Rate > 60; Glucose 158 mg/dL (65-110); Potassium 4.1 mmol/L (3.4-5.0); Sodium 139 mmol/L (137-145)
[2024-05-28 10:22] LABS: Percent Iron Saturation 52 % (20-50)
[2024-05-28 11:14] LABS: Folic Acid 6.5 ng/mL (2.76->20)
[2024-05-30 06:44] LABS: CA 15-3 32 U/mL (<32)
== END 2024-05-28 08:30 | disposition home or self-care (01) ==
LOC: ANHLAB 08:31
PROVIDERS: Nurse Practitioner Family; PCP Family Medicine Adolescent Medicine; Visit Provider Internal Medicine Hematology & Oncology
DX: C50.212 Malignant neoplasm of upper-inner quadrant of left female breast (principal); Z17.0 Estrogen receptor positive status [ER+]
CPT/HCPCS: 36415; 80053; 82607; 82728; 82746; 83540; 83550; 85025; 86300

== ENCOUNTER 2024-08-27 12:01 | Outpatient (CLI) | payer OTHER, SELFPAY ==
--- NOTE | ~2024-08-27 | XR_ITS ---
Clinical Indication: Cough PA and lateral views of the chest: Comparison: 11/17/2017 Findings: The lungs are clear, without evidence of focal consolidation or pleural effusion. Cardiome diastinal silhouette is within normal limits. Bones and soft tissues are unremarkable. Impression: Normal chest. Reviewed, dictated and finalized at [facility]. Impression: Normal chest.
[2024-08-27 12:39] LABS: Hemoglobin 14.4 g/dL (12.0-15.0); Mean Corpuscular HGB Conc 34.3 g/dl (32-36); Mean Corpuscular Hemoglobin 34.5 pg (26-34); Mean Corpuscular Volume 100.7 fl (80-100); Platelet Count Result 348 k/mm3 (150-375); Red Blood Count 4.17 M/mm3 (4.2-5.4); Red Cell Distribution Width 13.1 % (11.5-14.5); White Blood Count 10.9 K/mm3 (4.5-10.0)
[2024-08-27 12:40] LABS: Basophils Absolute Auto 0.1 K/mm3 (0.0-0.1); Basophils Percent Auto 0.5 % (0.2-1.2); Eosinophils Absolute Auto 0.1 K/mm3 (0-0.3); Eosinophils Percent Auto 1.2 % (0-4.4); Immature Granulocyte Absolute 0.04 K/mm3 (0.00-0.031); Immature Granulocyte Percent A 0.4 % (0-0.5); Lymphocytes Absolute Auto 2.55 K/mm3 (0.9-3.2); Lymphocytes Percent Auto 23.4 % (18.3-44.2); Mean Platelet Volume 9.1 fl (7.4-10.4); Monocytes Absolute Auto 0.9 K/mm3 (0.1-0.6); Monocytes Percent Auto 8.2 % (2.6-8.5); Neutrophils Absolute Auto 7.2 K/mm3 (1.3-6.7); Neutrophils Percent Auto 66.3 % (45.5-73.1)
[2024-08-27 12:41] LABS: Hemoglobin A1C 5.9 % (<5.7)
[2024-08-27 12:46] LABS: Alanine Aminotransferase 22 U/L (6-35); Albumin Level 4.7 g/dL (3.5-5.1); Alkaline Phosphatase 111 U/L (38-126); Anion Gap 11 mmol/L (4-12); Aspartate Amino Transferase 36 U/L (14-36); Bilirubin,Total 0.5 mg/dL (0.2-1.3); Blood Urea Nitrogen 14 mg/dL (7-17); Calcium 9.6 mg/dL (8.4-10.2); Carbon Dioxide 21 mmol/L (22-30); Chloride 102 mmol/L (98-107); Cholesterol 187 mg/dL (0-200); Estimated Glomerular Filt Rate > 60; Glucose 120 mg/dL (65-110); HDL Direct 68 mg/dL; Potassium 4.2 mmol/L (3.4-5.0); Sodium 134 mmol/L (137-145); Triglycerides 152 mg/dL (<150)
[2024-08-27 12:56] LABS: LDL Cholesterol Direct 75 mg/dL
[2024-08-27 13:14] LABS: Thyroid Stimulating Hormone 0.669 uIU/mL (0.465-4.680)
== END 2024-08-27 12:02 | disposition home or self-care (01) ==
PROVIDERS: PCP Nurse Practitioner Family; Visit Provider Nurse Practitioner Family
DX: R05.9 Cough, unspecified (principal); E78.5 Hyperlipidemia, unspecified; I10 Essential (primary) hypertension; E03.9 Hypothyroidism, unspecified; F31.9 Bipolar disorder, unspecified; J30.2 Other seasonal allergic rhinitis; R73.01 Impaired fasting glucose
CPT/HCPCS: 36415; 71046; 80053; 80061; 83036; 84443; 85025

== ENCOUNTER 2024-11-28 12:19 | Outpatient (CLI) | payer OTHER, SELFPAY ==
[2024-11-28 12:34] LABS: Basophils Absolute Auto 0.1 K/mm3 (0.0-0.1); Basophils Percent Auto 0.5 % (0.2-1.2); Eosinophils Absolute Auto 0.2 K/mm3 (0-0.3); Eosinophils Percent Auto 2.3 % (0-4.4); Hematocrit 44.7 % (37.0-47.0); Hemoglobin 15.5 g/dL (12.0-15.0); Immature Granulocyte Absolute 0.05 K/mm3 (0.00-0.031); Immature Granulocyte Percent A 0.5 % (0-0.5); Lymphocytes Absolute Auto 4.33 K/mm3 (0.9-3.2); Lymphocytes Percent Auto 41.6 % (18.3-44.2); Mean Corpuscular HGB Conc 34.7 g/dl (32-36); Mean Corpuscular Hemoglobin 34.7 pg (26-34); Mean Platelet Volume 8.7 fl (7.4-10.4); Monocytes Absolute Auto 1.1 K/mm3 (0.1-0.6); Monocytes Percent Auto 10.8 % (2.6-8.5); Neutrophils Absolute Auto 4.6 K/mm3 (1.3-6.7); Neutrophils Percent Auto 44.3 % (45.5-73.1); Platelet Count Result 332 k/mm3 (150-375); Red Blood Count 4.47 M/mm3 (4.2-5.4); Red Cell Distribution Width 11.9 % (11.5-14.5); White Blood Count 10.4 K/mm3 (4.5-10.0)
[2024-11-28 16:40] LABS: Anion Gap 4 mmol/L (4-12); Blood Urea Nitrogen 14 mg/dL (7-17); Calcium 9.8 mg/dL (8.4-10.2); Carbon Dioxide 26 mmol/L (22-30); Chloride 105 mmol/L (98-107); Estimated Glomerular Filt Rate > 60; Glucose 114 mg/dL (65-110); Potassium 4.3 mmol/L (3.4-5.0); Sodium 135 mmol/L (137-145)
[2024-11-29 09:53] LABS: CA 15-3 62 U/mL (<32)
== END 2024-11-28 12:20 | disposition home or self-care (01) ==
LOC: ANHLAB 12:21
PROVIDERS: PCP Nurse Practitioner Family; Visit Provider Internal Medicine Hematology & Oncology
DX: C50.212 Malignant neoplasm of upper-inner quadrant of left female breast (principal); Z17.0 Estrogen receptor positive status [ER+]
CPT/HCPCS: 36415; 80048; 85025; 86300

== ENCOUNTER 2024-12-10 09:18 | Outpatient (CLI) | payer OTHER, SELFPAY ==
--- NOTE | ~2024-12-10 | CT_ITS ---
EXAMINATION: CT chest abdomen pelvis w con DATE: 12/10/2024 09:54 INDICATION: Malignant neoplasm of the upper inner quadrant of the left breast. TECHNIQUE: Computed tomography (CT) of the chest, abdomen, and pelvis was performed with 100 mL Omnip aque-350 intravenous contrast. Automated exposure control and iterative reconstruction technique were employed. The dose-length product was 1074.42 mGy-cm. COMPARISON: None FINDINGS: CHEST CT: Mild emphysema. Scattered mild bilateral reticular atelectasis at the periphery of the lower lungs. C alcified nodules in the left upper and right lower lobe along with calcified left hilar lymph nodes c onsistent with old granulomatous disease. No suspicious pulmonary nodules. There is however concernin g increased soft tissue surrounding the bronchovascular structures at the right hilum which appears t o mildly narrow the right upper lobar bronchi with some wall thickening extending peripherally along the central upper lobar bronchi as well as a significant more prominent focal stenosis of the right u pper lobe pulmonary artery. There is suspicious for metastatic hilar lymphadenopathy. There are also several enlarged mediastinal lymph nodes in the subcarinal and right paratracheal regions. Heart size normal. Atherosclerotic coronary calcifications. Very small pericardial effusion. Thoracic aorta is normal in caliber with no dissection. Status post left mastectomy. Multiple surgical clips at the lef t axilla consistent with associated left axillary lymph node dissection. Mild to moderate thoracic sp ondylosis. ABDOMEN/PELVIS CT: There is mild central intrahepatic biliary ductal dilation along with mild dilation the common bile d uct measuring up to 8 mm in diameter. Liver, gallbladder, spleen, pancreas and bilateral adrenal glan ds are normal. The region of cortical scarring at both kidneys. There is moderate colonic diverticulo sis with a sigmoid predominance without adjacent inflammatory change to suggest diverticulitis. Small bowel and appendix are normal. Bladder, anteverted uterus and bilateral adnexa are unremarkable. No free intraperitoneal gas or fluid. No pathologically enlarged abdominal or pelvic lymphadenopathy. Th ere is calcified atherosclerosis of the aorta and many of the other arteries. There appears to be sev ere significant stenosis at the origin of the right common iliac artery. Mild to moderate lumbar spon dylosis. Moderate to severe bilateral hip osteoarthritis. IMPRESSION: 1. Mediastinal and right hilar lymphadenopathy, the latter. Confluent resulting in mild stenosis of t he central right upper lobar bronchi and more significant stenosis of the right upper lobar pulmonary artery which is most concerning for metastatic disease. There is evidence of granulomatous disease a lthough no calcified hilar and mediastinal lymph nodes and differential would include fibrosing media stinitis. 2. No lesion suspicious for metastatic disease in the abdomen or pelvis. 2. Diverticulosis. 3. Scattered atherosclerosis with likely severe stenosis at the origin of the right common iliac teri ry. Reviewed, dictated and finalized at location [facility] IMPRESSION: 1. Mediastinal and right hilar lymphadenopathy, the latter. Confluent resulting in mild stenosis of the central right upper lobar bronchi and more significant stenosis of the right upper lobar pulmonary artery which is most concerning fo r metastatic disease. There is evidence of granulomatous disease although no ca lcified hilar and mediastinal lymph nodes and differential would include fibros ing mediastinitis. 2. No lesion suspicious for metastatic disease in the abdomen or pelvis. 2. Diverticulosis. 3. Scattered atherosclerosis with likely severe stenosis at the origin of the r ight common iliac artery.
[2024-12-10 09:39] LABS: Estimated Glomerular Filt Rate > 60
== END 2024-12-10 09:19 | disposition home or self-care (01) ==
PROVIDERS: PCP Family Medicine Adolescent Medicine; Visit Provider Internal Medicine Hematology & Oncology
DX: C50.212 Malignant neoplasm of upper-inner quadrant of left female breast (principal); Z17.0 Estrogen receptor positive status [ER+]; K57.30 Diverticulosis of large intestine without perforation or abscess without bleeding
CPT/HCPCS: 71260; 74177; Q9967

== ENCOUNTER 2025-01-23 14:02 | Outpatient (CLI) | payer OTHER, SELFPAY | END 2025-01-23 14:03 | disposition home or self-care (01) | PROVIDERS: PCP Family Medicine Adolescent Medicine; Visit Provider Internal Medicine Hematology & Oncology | DX: C50.212 Malignant neoplasm of upper-inner quadrant of left female breast (principal); Z17.0 Estrogen receptor positive status [ER+]; I45.10 Unspecified right bundle-branch block; I44.0 Atrioventricular block, first degree | CPT/HCPCS: 93005 ==

== ENCOUNTER 2025-02-26 10:18 | Outpatient (CLI) | payer OTHER, SELFPAY ==
[2025-02-26 10:46] LABS: Basophils Percent Auto 0.6 % (0.2-1.2); Eosinophils Absolute Auto 0.1 K/mm3 (0-0.3); Eosinophils Percent Auto 2.1 % (0-4.4); Hematocrit 35.1 % (37.0-47.0); Hemoglobin 12.5 g/dL (12.0-15.0); Immature Granulocyte Absolute 0.02 K/mm3 (0.00-0.031); Immature Granulocyte Percent A 0.3 % (0-0.5); Lymphocytes Absolute Auto 3.62 K/mm3 (0.9-3.2); Lymphocytes Percent Auto 54.6 % (18.3-44.2); Mean Corpuscular HGB Conc 35.6 g/dl (32-36); Mean Corpuscular Hemoglobin 35.2 pg (26-34); Mean Corpuscular Volume 98.9 fl (80-100); Mean Platelet Volume 8.8 fl (7.4-10.4); Monocytes Absolute Auto 0.4 K/mm3 (0.1-0.6); Monocytes Percent Auto 5.7 % (2.6-8.5); Neutrophils Absolute Auto 2.4 K/mm3 (1.3-6.7); Neutrophils Percent Auto 36.7 % (45.5-73.1); Platelet Count Result 137 k/mm3 (150-375); Red Blood Count 3.55 M/mm3 (4.2-5.4); Red Cell Distribution Width 13.1 % (11.5-14.5); White Blood Count 6.6 K/mm3 (4.5-10.0)
[2025-02-26 11:26] LABS: Alanine Aminotransferase 70 U/L (6-35); Albumin Level 4.3 g/dL (3.5-5.1); Alkaline Phosphatase 124 U/L (38-126); Anion Gap 10 mmol/L (4-12); Aspartate Amino Transferase 44 U/L (14-36); Bilirubin,Total 0.5 mg/dL (0.2-1.3); Blood Urea Nitrogen 8 mg/dL (7-17); Calcium 9.4 mg/dL (8.4-10.2); Carbon Dioxide 23 mmol/L (22-30); Chloride 99 mmol/L (98-107); Cholesterol 143 mg/dL (0-200); Estimated Glomerular Filt Rate > 60; Glucose 124 mg/dL (65-110); HDL Direct 82 mg/dL; Potassium 3.9 mmol/L (3.4-5.0); Sodium 132 mmol/L (137-145); Triglycerides 126 mg/dL (<150)
[2025-02-26 11:27] LABS: Anion Gap 10 mmol/L (4-12); Blood Urea Nitrogen 8 mg/dL (7-17); Calcium 9.4 mg/dL (8.4-10.2); Carbon Dioxide 23 mmol/L (22-30); Chloride 99 mmol/L (98-107); Estimated Glomerular Filt Rate > 60; Glucose 124 mg/dL (65-110); Potassium 3.9 mmol/L (3.4-5.0); Sodium 132 mmol/L (137-145)
--- OUTSIDE RECORDS SUMMARY | 2025-02-26 11:35 | XMS_ITS | Clinical Summary ---
Author Organization [facility] Address [address] [place] [address] Care Team Providers Care Transcribing Operators Supervisor Name Role Phone Dariel Barber MD Primary Care Provider [phone] Allergies Active Allergy Reactions Criticality Noted Date Comments Penicillins Swelling Low 11/10/2017 Medications metoprolol tartrate (LOPRESSOR) 50 mg tablet Take 50 mg by mouth 2 times daily. Active levothyroxine 175 mcg tablet Take 175 mcg by mouth daily. Active traZODone (DESYREL) 150 mg tablet Take 150 mg by mouth daily at bedtime. Active calcium as carbonate (CALTRATE) 1,500 mg (600 mg elemental) Tablet Take by mouth. Active atorvastatin (LIPITOR) 20 mg tablet Take 20 mg by mouth daily with supper. Active fexofenadine (JEANCARLOS) 60 mg tablet Take 60 mg by mouth daily. Active traMADol (ULTRAM) 50 mg tablet TAKE 1 TABLET BY MOUTH THREE TIMES DAILY NEEDED 9 Active divalproex (DEPAKOTE ER) 250 mg Extended Release 24 hour tablet TAKE 3 TABLETS BY MOUTH ONCE DAILY AT NIGHT AT BEDTIME 0 Active diclofenac sodium (VOLTAREN) 75 mg Tablet, Delayed Release (E.C.) TAKE 1 TABLET BY MOUTH TWICE DAILY 9 Active OXcarbazepine (TRILEPTAL) 300 mg tablet TAKE ONE TABLET BY MOUTH TWICE DAILY 8 Active QUEtiapine (SEROquel) 100 mg tablet Take 100 mg by mouth daily. 2 Active anastrozole (ARIMIDEX) 1 mg tabletIndication s:Malignant neoplasm of upper-inner quadrant of left breast in female, estrogen receptor positive (CMS/HCC) Take 1 Tablet (1 mg) by mouth daily. 90 Tablet 4 4 Active ferrous sulfate 325 mg (65 mg iron) tabletIndication s:Iron deficiency anemia, unspecified iron deficiency anemia type Take 1 tablet by mouth once daily 90 Tablet 2 5 Active abemaciclib (Verzenio) 150 mg tablet Take 1 Tablet (150 mg) by mouth 2 times daily. 56 Tablet 5 02/04/2025 1:24 PM CDT 5 Active ondansetron (ZOFRAN ODT) 8 mg Tablet, Rapid Dissolve Dissolve 1 tablet on top of tongue then swallow with saliva every 8 hours as needed for nausea or vomiting 30 Tablet 1 5 Active Active Problems Problem Noted Date Diagnosed Date Mediastinal lymphadenopathy 01/14/2025 Hilar lymphadenopathy 01/14/2025 Iron deficiency anemia 02/22/2018 Malignant neoplasm of upper- inner quadrant of left breast in female, estrogen receptor positive 11/10/2017 Tobacco use 11/10/2017 Encounters Date Type Department Care Team Description 02/05/2025 Refill [facility] Oncology and Hematology - [place] [address] [place] [address] Addison Prakash MD 02/04/[address] [facility] [address] [place] [phone] Tamiko Osborn, PHARMACIST Specialty Pharmacy Clinical Assessment 02/03/[address] [facility] [address] [place] [phone] Sindhu Harper, PHARMACIST Specialty Pharmacy Refill Coordination 01/28/2025 External Device Data STL ABSTRACTION Provider, Abstract 01/24/[address] [facility] [address] [place] [phone] Tamiko Osborn, PHARMACIST Specialty Pharmacy Prior Auth Coordination 01/24/2025 Orders Only [facility] Oncology and Hematology - [place] [place] [address] Addison Prakash MD 01/21/2025 11:30 AM ELECTRICAL INSPECTOR Office Visit [facility] Oncology and Hematology [facility] [address] [place] [address] Addison Prakash MD Malignant neoplasm of upper-inner quadrant of left breast in female, estrogen receptor positive (CMS/HCC) (Primary Dx) 01/21/2025 Telephone [facility] Oncology and Hematology [facility] [address] [place] [address] Addison Prakash MD EKG order 01/21/2025 Orders Only [facility] Oncology and Hematology [facility] [address] [place] [address] Addison Prakash MD Malignant neoplasm of upper-inner quadrant of left breast in female, estrogen receptor positive (CMS/HCC) (Primary Dx) 01/21/[address] [facility] [place] [phone] Siena Rocha, PHARMACIST Specialty Pharmacy Prior Auth Coordination 01/21/2025 Orders Only [facility] Oncology and Hematology [facility] [address] [place] [address] Addison Prakash MD 01/16/2025 Telephone [facility] Pulmonology [facility] [address] [facility] [place] [phone] Wilner Taylor MD Results 01/15/2025 External Device Data STL ABSTRACTION Provider, Abstract 01/15/2025 External Device Data [facility] ABSTRACTION Provider, Abstract 01/14/2025 6:05 AM ELECTRICAL INSPECTOR - 01/14/2025 12:49 PM ELECTRICAL INSPECTOR Hospital Encounter [facility] Interventional Care [address] [place] [address] Wilner Taylor MD Mediastinal lymphadenopathy Discharge Disposition: Home or Self Care 01/09/2025 Telephone [facility] Pulmonology [facility] [address] [place] [phone] Wilner Taylor MD Procedure 01/08/2025 10:15 AM ELECTRICAL INSPECTOR Video Visit [facility] Cardiovas and Thor Surg at [address] [place] [address] Addison Prakash MD Fotouhi, Farzin, MD Mediastinal adenopathy (Primary Dx) 12/24/2024 External Device Data STL ABSTRACTION Provider, Abstract 12/18/2024 4:30 PM ELECTRICAL INSPECTOR Telephone Check Up [facility] Oncology and Hematology - [place] [address] [place] [address] Addison Prakash MD Mediastinal lymphadenopathy (Primary Dx) 12/18/2024 External Device Data STL ABSTRACTION Provider, Abstract 12/16/2024 Refill [facility] Oncology and Hematology - [place] [address] [place] [address] Addison Prakash MD Iron deficiency anemia, unspecified iron deficiency anemia type 12/12/2024 Orders Only [facility] Oncology and Hematology - [place] [address] [place] [address] Addison Prakash MD 12/10/2024 External Device Data STL ABSTRACTION Provider, Abstract 12/10/2024 Orders Only [facility] Oncology and Hematology - [place] [address] [place] [address] Addison Prakash MD 12/09/2024 Orders Only [facility] Oncology and Hematology - [place] [address] [place] [address] Addison Prakash MD 12/06/2024 Orders Only [facility] Oncology and Hematology - [place] [address] [place] [address] Addison Prakash MD 12/05/2024 Orders Only [facility] Oncology and Hematology - [place] [address] [place] [address] Addison Prakash MD 12/04/2024 10:00 AM ELECTRICAL INSPECTOR Office Visit [facility] Oncology and Hematology [facility] [address] [place] [address] Addison Prakash MD Malignant neoplasm of upper-inner quadrant of left breast in female, estrogen receptor positive (CMS/HCC) (Primary Dx) from Last 3 Months Family History Medical History Relation Name Comments Unknown Brother Unknown Father Unknown Mother Unknown Sister Relation Name Status Comments Brother Alive Father Mother Alive Sister Alive Social History Tobacco Use Types Packs/Day Years Used Date Smoking Tobacco: Every Day Cigarettes 1 1 Started: 03/11/2024; Last attempted to quit: 12/11/2017 Smokeless Tobacco: Never Tobacco Cessation:Ready to Q uit: Not Asked; Counseling Given: Not Answered Alcohol Use Standard Drinks/Week Comments No 0 (1 standard drink = 0.6 oz pur e alcohol) Food Insecurity Answer Date Recorded Social/Environmental Concerns No concerns Transportation Needs Answer Date Record ed Social/Environmental Concerns No concerns Housing Stability Answer Date Recorded Social/Environmental Concerns No concerns Utility Needs Answer Date Recorded Social/Environmental Concerns No concerns Comments No Sex and Gender Information Value Date Recorded Sex Assigned at Not on file Legal Sex Female 12:01 PM ELECTRICAL INSPECTOR Gender Identity Not on file Sexual Orientation Not on file Last Filed Vital Signs Vital Sign Reading Time Taken Comments Blood Pressure 161/92 01/21/2025 11:26 AM ELECTRICAL INSPECTOR Pulse 109 01/21/2025 11:22 AM ELECTRICAL INSPECTOR Temperature 36.3 C (97.4 F) 01/21/2025 11:22 AM ELECTRICAL INSPECTOR Respiratory Rate 15 01/21/2025 11:22 AM ELECTRICAL INSPECTOR Oxygen Saturation 96% 01/21/2025 11:22 AM ELECTRICAL INSPECTOR Inhaled Oxygen Concentration - - Weight 80.1 kg (176 lb 9.6 oz) 01/21/2025 11:22 AM ELECTRICAL INSPECTOR Height 167.6 cm (5' 6 ) 01/14/2025 6:50 AM ELECTRICAL INSPECTOR Body Mass Index 28.5 01/14/2025 6:50 AM ELECTRICAL INSPECTOR Plan of Treatment Upcoming Encounters Date Type Department Care Team (Late st Contact Info) Description 03/05/2025 2:45 PM CDT Office Visit [facility] Oncology and Hematology - [place]af [address] [place] [address] Addison Prakash MD [address] [facility] [address] [place] [address] 07/08/2025 1:30 PM CDT Office Visit [facility] Pulmonology [facility] [address] [place] [address] Wilner Taylor MD [address] [place] [address] Health Maintenance Due Date Last Done Comments Pre-Diabetes and Diabetes Screening 1955 DTAP/TDAP/TD VACCINES (1 - Tdap) 1975 PNEUMOCOCCAL VACCINE 50+ YEA RS (1 of 2 - PCV) 1975 COLORECTAL SCREENING 2001 Colorectal Cancer Screening 2001 FIT-DNA Q 3 years 2001 FIT/FOBT Q 1 year 2001 Flex Sig/CT Colonography Q 5 years 2001 ZOSTER VACCINE (1 of 2) 2006 OSTEOPOROSIS SCREENING 2021 INFLUENZA VACCINE (#1) 2024 [place] Preventative Visit/Annual Wellness Visit 11/27/2024 BREAST CANCER SCREENING 05/24/2025 05/24/20 24, 02/05/2021, 02/05/2021, Additional history exists RSV VACCINE (60+ or ) (1 - 1-dose 75+ series) 2031 Procedures Procedure Name Priority Date/Time Associated Diagnosis Comments EKG 12-LEAD Routine 01/23/2025 9:10 AM ELECTRICAL INSPECTOR TELEMETRY REPORT 01/17/2025 4:20 PM ELECTRICAL INSPECTOR PROCEDURE REPORT 01/14/2025 11:0 4 AM ELECTRICAL INSPECTOR PATHOLOGY Pathology 01/14/2025 10:17 AM ELECTRICAL INSPECTOR CYTOLOGY, NON GYNE Pathology 01/14/2025 10 :17 AM ELECTRICAL INSPECTOR FUNGUS CULTURE, OTHER Routine 01/14/2025 10:17 AM ELECTRICAL INSPECTOR AFB CULTURE WITH STAIN Routine 01/14/2025 10:17 AM ELECTRICAL INSPECTOR RESPIRATORY CULTURE WITH GRAM STAIN Routine 01/14/2025 10:17 AM ELECTRICAL INSPECTOR CREATININE Routine 12/10/2024 1:[address] CHEST ABDOMEN PELVIS W CONT Routine 12/10/2024 10:27 AM ELECTRICAL INSPECTOR CANCER ANTIGEN 15-3 Routine 11/29/2024 1 :15 PM ELECTRICAL INSPECTOR CBC WITH DIFFERENTIAL Routine 11/28/2024 4:18 PM ELECTRICAL INSPECTOR BASIC METABOLIC PANEL Routine 11/28/2024 1:50 PM ELECTRICAL INSPECTOR MAMMO SCREENING UNILATERAL RIGHT Routine 05/24/2024 11:56 AM CDT from Last 3 Months or Most Recently Relevant to Health Maintenance Results * EKG 12-LEAD (01/23/2025 9:10 AM ELECTRICAL INSPECTOR) us Addison Prakash MD ECG ORDERABLES Final Result * TELEMETRY REPORT (01/17/2025 4:20 PM ELECTRICAL INSPECTOR) us Provider Scanning ECG ORDERABLES Final Result * PROCEDURE REPORT (01/14/2025 11:04 AM ELECTRICAL INSPECTOR) Narrative Procedure Note Wilner Taylor MD - 01/14/2025 11:04 AM CST [facility] Pulmonology Patient Name: Emmy Higgins Procedure Date: 01/14/2025 Date of : 1955 Admit Type: Outpatient Attending MD: Wilner Taylor MD, Procedure: Bronchoscopy Indications: Hilar lymphadenopathy of the right side, Mediastinal adenopathy Providers: Wilner Taylor MD (Doctor) Referring MD: Kane Helm MD Requesting Physician: Medicines: Midazolam 12 mg IV, Fentanyl 300 mcg IV, Epinephrine 1 mg/10 mL topical 10 mL Complications: No immediate complications Procedure: Informed consent was obtained for the procedure, including sedation. Risks of hypoxia, dental injury, lung injury/perforation, hemorrhage, infection, arrhythmia, and adverse drug reaction were discussed. A time-out process was performed and verified patient identification, procedure, correct patient position, as well as special equipment available. The patient was brought to the bronchoscopy suite. 2% lidocaine was used for topical anesthesia of the tracheobronchial tree. Oxygen saturation and vital signs were monitored continuously. The bronchoscope was introduced through the mouth, via laryngeal mask airway and advanced to the tracheobronchial tree. The procedure was accomplished without difficulty. The patient tolerated the procedure fairly well. Moderate sedation start time 9:05 AM Moderate sedation end time 9:59 AM Findings: The jeri itself was sharp with no mucosal abnormalities, thereafter a comprehensive inspection of the entire bronchial tree was performed to the subsegmental level. Endobronchial mucosal thickening and irregularity was noted in the right upper lobe bronchus at the segmental takeoffs, endobronchial biopsies were obtained from this area after topical instillation of an epinephrine solution. The entire left bronchial tree appeared normal. Thereafter, the bronchoscope was withdrawn without incident. An EBUS-bronchoscope was inserted via the indwelling airway and advanced to the right secondary jeri; linear ultrasound imaging demonstrated hilar adenopathy corresponding to station 11R, multiple needle aspirates were obtained. Next, the bronchoscope was sequentially proximally retracted and further ultrasound imaging was performed that likewise demonstrated lymphadenopathy corresponding to Stations 7 and 4R; additional EBUS-guided needle aspirations and core biopsies were performed. The bronchoscope was withdrawn without incident, no residual bleeding was observed. Specimens: 1.Endobronchial biopsies from the right upper lobe bronchus 2.Needle aspirates from lymph node stations 4R,7 and 11R 3.Needle core biopsies lymph node station 7 Impression: - Hilar lymphadenopathy of the right side - Mediastinal adenopathy Recommendation: - Await test results. Wilner Taylor MD 01/14/2025 11:01:05 AM Number of Addenda: 0 Note Initiated On: 01/14/2025 7:[address]; [place] [address] Wilner Taylor MD PROCEDURE/MINOR SURGICAL ORDE VARGAS Final Result * PATHOLOGY (01/14/2025 10:17 AM ELECTRICAL INSPECTOR) CASE REPORT Surgical Pathology Report Case: [id number] Authorizing Provider: Wilner Taylor MD Collected: 01/14/2025 10:17 AM Ordering Location: [facility] Received: 01/14/2025 01:22 PM [facility] Interventional Care Pathologist: Bethany Glez MD Specimens: A) - Lung, RUL, Endobronchial bx B) - Lymph node, Needle core bx Station 7 8:52 AM [facility] ADDENDUM 1 This addendum is issued to report the fixation time per CAP/ASCO guidelines: 6.5 hours. The diagnoses are unchanged. 8:52 AM [facility] Addendum electronically signed by Bethany Glez MD on 01/17/2025 at 0852 ELECTRICAL INSPECTOR FINAL DIAGNOSIS Lung, right upper lobe, endobronchial biopsy: - Metastatic adenocarcinoma, compatible with known breast primary. Lymph node, station 7, needle biopsy: - Metastatic adenocarcinoma, compatible with known breast primary. - Estrogen and progesterone receptor positive (8/8; 6/8); HER2 negative (0). See comment. 8:52 AM [facility] at 1614 ELECTRICAL INSPECTOR GROSS DESCRIPTION The specimens are received in two containers each labeled Emmy Higgins . Received in the first container additionally labeled endobronchial biopsy RUL are 2 pieces of pink-felix tissue each measuring 0.1 cm in greatest dimension. All are submitted in cassettes A1 and A2. Received in the second container additionally labeled lymph node needle biopsy station 7 is a 2.0 x 2.0 x 0.1 cm aggregate of semitranslucent friable red-felix tissue cores and core fragments which are filtered into mesh bags and entirely submitted in cassettes B1 and B2. [facility] 8:52 AM [facility] MICROSCOPIC DESCRIPTION The slides are labeled [id number] and Emmy Higgins. 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 This case was reviewed in conjunction with the concomitant cytology material [id number]. Sections of the endobronchial biopsy show bronchial mucosa involved by neoplastic epithelioid cells with frequent intracytoplasmic lumina. This population is immunoreactive with GATA3 and negative for synaptophysin. Sections the station 7 needle biopsy show fragments of fibrous tissue infiltrated by malignant epithelioid cells arranged as cords and glands. This population is immunoreactive with GATA3, estrogen receptor, and progesterone receptor. The cytomorphology and the extended immunophenotype performed on the concomitant cytology specimen [id number]) are most compatible with metastasis from the patient's known breast primary. Results of biomarker testing: Diagnosis: Metastatic adenocarcinoma compatible with known breast primary Site: Station 7 lymph node Block #: [id number] Cold Ischemia Time: Not recorded Duration of Fixation: Approximate duration of fixation will be reported in an addendum. Internal Control: Control tissue present and appropriately reactive. Test Results HER2 Protein Overexpression (immunohistochemistry) = 0 (negative) Cases with equivocal staining (2+) will be reflexed to HER2 in situ hybridization testing and the results reported in an addendum. ER Total Score (immunohistochemistry) = 8/8 (positive) Proportion Score = 5/5 Intensity Score = 3/3 TN Total Score (immunohistochemistry) = 6/8 (positive) Proportion Score = 4/5 Intensity Score = 2/3 HER2 membrane staining (Antibody Clone 4B5) is scored on a 0 to 3+ scale in accordance to 2023 CAP/ASCO guidelines. Estrogen and progesterone receptor content is assayed in a semiquantitative manner utilizing the ER antibody (Clone SP1) and TN antibody (Clone 1E2). Results are reported as a total score (range 0 to 8) which equals the sum of the proportion score (percentage of tumor cells with positive nuclear staining) and the intensity score (average staining intensity of all positive tumor cells). Reference Ranges HER2 score 0 (Negative) = no expression or incomplete, faint membrane staining and within <10% of tumor cells 1+ (Negative) = incomplete, faint membrane staining and within >10% of tumor cells 2+ (Equivocal) = weak/moderate complete membrane staining within >10% of tumor cells. 3+ (Positive) = circumferential membrane staining that is complete and intense ER and TN Total Score 0-2 = negative >= 3 = positive ER and TN Proportion Score (% positive cells) 0 = none 1 = > 0 to < 1% 2 = > or = 1% to 10% 3 = > 10% to 33.3% 4 = > 33.3% to 66.7% 5 = > 66.7% ER and TN Intensity Score (average staining intensity) 0 = none 1 = weak 2 = intermediate 3 = strong * Studies are performed on neutral-buffered formalin-fixed paraffin embedded sections unless otherwise specified. These assays have not been validated on decalcified tissues. Results should be interpreted with caution given the likelihood of false negativity on decalcified tissues. * Patients with breast cancers that are HER2 IHC 3+ or IHC 2+/YEIMY amplified may be eligible for several therapies that disrupt HER2 signaling pathways. Invasive breast cancers that test 'HER2-negative' (IHC 0, 1+ or 2+/YEIMY not-amplified) are more specifically considered 'HER2-negative for protein overexpression/gene amplification' since non-overexpressed levels of the HER2 protein may be present in these cases. Patients with breast cancers that are HER2 IHC 1+ or IHC 2+ /YEIMY not-amplified may be eligible for a treatment that targets non-amplified/non-over expressed levels of HER2 expression for cytotoxic drug delivery. * When the ER Proportion Score = 2 the cancer in the sample has a low level (1-10%) of ER expression by IHC and should be reported as L ow Positive . There are limited data on the overall benefit of endocrine therapies for patients with low level (1-10%) ER expression but they currently suggest possible benefit, so patients are considered eligible for endocrine treatment. There are data that suggest invasive cancers with these results are heterogeneous in both behavior and biology and often have gene expression profiles more similar to ER negative cancers. 5 8:52 AM [facility] OPERATIVE PROCEDURE Endobronchial biopsy, needle biopsy 5 8:52 AM [facility] CLINICAL INFORMATION Mediastinal adenopathy, smoker, h/o breast cancer 5 8:52 AM [facility] COMMENT Special stain, immunohistochemical, and/or in situ hybridization results are interpreted with controls that demonstrate appropriate staining reactions. Note on use of immunohistochemistry reagents and in situ hybridization probes: These tests were developed and their performance characteristics determined by [facility], Department of Laboratory Medicine. It has not been cleared or approved by the U.S. Food and Drug Administration. The FDA has determined that such clearance or approval is not necessary. The test is used for clinical purposes. It should not be regarded as investigational or for research. This laboratory is certified to perform high complexity testing. Frozen section/operating room consultation, gross examination and dissection, and case sign out may have been performed in part or completely in the following laboratories: [facility], [place] #[id number] [address] [place] [address] [facility], [place] #[id number] [address] [place] [address] [facility], [place] #[id number] [address] [place] [address] This report was created with the [employer] voice-activated dictation system. Inherent to this system is the possibility of syntax, grammar, punctuation and other errors that could impact the interpretation of the report. If there are interpretative questions about aspects of this report, please contact the performing pathologist. 8:52 AM [facility] Tissue ENTIRE LYMPH NODE / Unknown Collection / Unknown 01/14/2025 10:17 AM ELECTRICAL INSPECTOR 01/14/2025 1:22 PM ELECTRICAL INSPECTOR Tissue specimen (specimen) ENTIRE LYMPH NODE / Unknown 01/14/2025 10:17 AM ELECTRICAL INSPECTOR 01/14/2025 1:22 PM ELECTRICAL INSPECTOR Wilner Taylor MD PATHOLOGY/CYTOLOGY ORDERABLES Edited Result - Final [id number] [address] [place] [address] * RESPIRATORY CULTURE WITH GRAM STAIN (01/14/2025 10:17 AM ELECTRICAL INSPECTOR) CULTURE No pathogens isolated. Normal respiratory erlinda present. 01/16/2025 10:46 AM [facility] GRAM STAIN Non diagnostic pattern 01/16/2025 10:46 AM [facility] GRAM STAIN 1+ (Rare or Occasional) Polymorphonuclear WBC 01/16/2025 10:46 AM ELECTRICAL INSPECTOR [facility] Washings SPECIMEN FROM LUNG / Unknown Collection / Unknown 01/14/2025 10:17 AM ELECTRICAL INSPECTOR 01/14/2025 10:47 AM ELECTRICAL INSPECTOR Wilner Taylor MD MICROBIOLOGY - GENERAL ORDERA BLES Final Result Performing Organization Address [facility]/ZIP Co de Phone Number [facility] [id number] [address] [place] [address] * FUNGUS CULTURE, OTHER (01/14/2025 10:17 AM ELECTRICAL INSPECTOR) CULTURE No fungus isolated. 02/11/2025 9:48 AM CDT [facility] Washings SPECIMEN FROM LUNG / Unknown Collection / Unknown 01/14/2025 10:17 AM ELECTRICAL INSPECTOR 01/14/2025 10:47 AM ELECTRICAL INSPECTOR Narrative [facility] - 02/11/2025 9:48 AM CDT Culture is held for a minimum of 4 weeks. Wilner Taylor MD MICROBIOLOGY - GENERAL ORDERA BLES Final Result Performing Organization Address [facility] Co de Phone Number [facility] [id number] [address] [place] [address] * CYTOLOGY, NON GYNE (01/14/2025 10:17 AM ELECTRICAL INSPECTOR) CASE REPORT Medical Cytology Report Case: [id number] Authorizing Provider: Wilner Taylor MD Collected: 01/14/2025 10:17 AM Ordering Location: [facility] Received: 01/14/2025 01:06 PM [facility] Interventional Care Pathologist: Bethany Glez MD Specimens: A) - Fine needle aspirate, lymph node, Station 11R B) - Fine needle aspirate, lymph node, Station 7 C) - Fine needle aspirate, lymph node, Station 4R 4:15 PM [facility] FINAL DIAGNOSIS Lymph node, station 11R, fine-needle aspiration: - Metastatic adenocarcinoma, compatible with known breast primary. - Cell block confirms the cytologic diagnosis. Lymph node, station 7, fine-needle aspiration: - Metastatic adenocarcinoma, compatible with known breast primary. - Cell block supports the cytologic diagnosis. Lymph node, station 4R, fine-needle aspiration: - Metastatic adenocarcinoma, compatible with known breast primary. - Cell block supports the cytologic diagnosis. 4:15 PM [facility] at 1615 ELECTRICAL INSPECTOR GROSS DESCRIPTION Received are 3 containers all labeled Emmy Higgins . The first specimen (A) is additionally labeled station 11R FNA . It consists of 2 direct smears (1 Pap, 1 Diff-Quik stained) and a container of CytoLyt that is made into a ThinPrep and cell block. The second specimen (B) is additionally labeled station 7 FNA . It consists of 2 direct smears (1 Pap, 1 Diff-Quik stained) and a container of CytoLyt that is made into a ThinPrep and cell block. The third specimen (C) is additionally labeled station 4R FNA . It consists of a container of CytoLyt that is made into a ThinPrep and cell block. SK 4:15 PM [facility] MICROSCOPIC DESCRIPTION The slides are labeled [id number] and Emmy Higgins. 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 Each lymph node aspirate contains clusters of severely atypical epithelioid cells. The cell blocks contain occasional fragments of fibrotic parenchyma infiltrated by cords and glands. This population is immunoreactive with GATA3, estrogen receptor, and progesterone receptor (subset). TTF-1 and p40 are negative. The limited immunophenotype is in keeping with involvement by the patient's known ER/TN positive breast cancer and argues against a lung primary. Quantitative ER/TN/HER2 staining will be reported on the surgical biopsy [id number], which was placed in formalin at the time of collection. 4:15 PM ELECTRICAL INSPECTOR [facility] IMMEDIATE ASSESSMENT Lymph node, station 11R, fine-needle aspiration: Pass 1: Indeterminate Lymph node, station 7, fine-needle aspiration: Pass 2: Satisfactory Enedelia Mari, CT 5 4:15 PM ELECTRICAL INSPECTOR [facility] OPERATIVE PROCEDURE Fine-needle aspiration 5 4:15 PM ELECTRICAL INSPECTOR [facility] CLINICAL INFORMATION Mediastinal adenopathy, smoker, h/o breast cancer 5 4:15 PM ELECTRICAL INSPECTOR [facility] COMMENT Special stain, immunohistochemical, and/or in situ hybridization results are interpreted with controls that demonstrate appropriate staining reactions. Note on use of immunohistochemistry reagents and in situ hybridization probes: These tests were developed and their performance characteristics determined by [facility] Department of Laboratory Medicine. It has not been cleared or approved by the U.S. Food and Drug Administration. The FDA has determined that such clearance or approval is not necessary. The test is used for clinical purposes. It should not be regarded as investigational or for research. This laboratory is certified to perform high complexity testing. Cases may have been signed out in part or completely in the following laboratories: [facility], CLIA #[id number] [address] [place] [address] [place] [address]/[place], CLIA #[id number] [place] [address]. 5 4:15 PM ELECTRICAL INSPECTOR [facility] Body fluid SPECIMEN FROM LYMPH NODE OBTAINED BY FINE NEEDLE ASPIRATION BIOPSY / Unknown Collection / Unknown 01/14/2025 10:17 AM ELECTRICAL INSPECTOR 01/14/2025 1:06 PM ELECTRICAL INSPECTOR Body fluid specimen (specimen) SPECIMEN FROM LYMPH NODE OBTAINED BY FINE NEEDLE ASPIRATION BIOPSY / Unknown 01/14/2025 10:17 AM ELECTRICAL INSPECTOR 01/14/2025 1:06 PM ELECTRICAL INSPECTOR Body fluid specimen (specimen) SPECIMEN FROM LYMPH NODE OBTAINED BY FINE NEEDLE ASPIRATION BIOPSY / Unknown 01/14/2025 10:17 AM ELECTRICAL INSPECTOR 01/14/2025 1:06 PM ELECTRICAL INSPECTOR Wilner Taylor MD PATHOLOGY/CYTOLOGY ORDERABLES Final Result [facility]# [id number] [address] [place] [address] * CREATININE (12/10/2024 1:43 PM ELECTRICAL INSPECTOR) Blood Addison Prakash MD CHEMISTRY ORDERABLES Final Resu lt * CT CHEST ABDOMEN PELVIS W CONT (12/10/2024 10:27 AM ELECTRICAL INSPECTOR) Anatomical Region Laterality Modality Chest Computed Tomogra phy Addison Prakash MD CT ORDERABLES Final Result * CANCER ANTIGEN 15-3 (11/29/2024 1:15 PM ELECTRICAL INSPECTOR) Blood Result [facility] Addison Prakash MD CHEMISTRY ORDERABLES Final Resu lt * CBC WITH DIFFERENTIAL (11/28/2024 4:18 PM ELECTRICAL INSPECTOR) Blood Result [facility] Addison Prakash MD HEMATOLOGY ORDERABLES Final Res ult * BASIC METABOLIC PANEL (11/28/2024 1:50 PM ELECTRICAL INSPECTOR) Blood Addison Prakash MD CHEMISTRY ORDERABLES Final Resu lt * MAMMO SCREENING UNILATERAL RIGHT (05/24/2024 11:56 AM CDT) Anatomical Region Laterality Modality Breast Right Mammography Annmarie Allen GREEN BUILDING MATERIALS DESIGNER MAMMO ORDERABLES Final Result from Last 3 Months or Most Recently Relevant to Health Maintenance Insurance [employer]ENCE PPO MCR ESSENCE PPO [facility] RX [employer] Medicare Part D RX [employer] Commercial Care Teams Transcribing Operators Supervisor Relationship Specialty Start Date End Date Dariel Barber MD PCP - General Family Practice 11/10/17
[2025-02-26 11:42] LABS: LDL Cholesterol Direct 32 mg/dL
[2025-02-26 11:56] LABS: Thyroid Stimulating Hormone 0.273 uIU/mL (0.465-4.680)
[2025-02-28 03:23] LABS: CA 15-3 46 U/mL (<32)
== END 2025-02-26 10:19 | disposition home or self-care (01) ==
PROVIDERS: PCP Family Medicine Adolescent Medicine; Referring Provider Nurse Practitioner Family; Visit Provider Internal Medicine Hematology & Oncology
DX: E78.5 Hyperlipidemia, unspecified (principal); F31.9 Bipolar disorder, unspecified; I10 Essential (primary) hypertension; R73.01 Impaired fasting glucose; E03.9 Hypothyroidism, unspecified; C50.212 Malignant neoplasm of upper-inner quadrant of left female breast; Z17.0 Estrogen receptor positive status [ER+]
CPT/HCPCS: 36415; 80048; 80053; 80061; 83036; 84443; 85025; 86300

== ENCOUNTER 2025-05-19 08:42 | Outpatient (CLI) | payer OTHER, SELFPAY ==
--- NOTE | ~2025-05-19 | CT_ITS ---
Clinical Indication: Breast cancer CT Scan of the Chest, Abdomen, and Pelvis with Contrast: Technique: Contiguous sections were acquired throughout the chest, abdomen, and pelvis after intraven ous administration of 100 cc of Omnipaque 350. Dose reduction technique was used on this scan by uti lizing automated exposure control and iterative reconstruction technique. The dose-length product (DL P) was 444.61 mGy-cm. Comparison: 12/10/2024 Findings: Soft tissue thickening at the right hilar region and subcarinal lymphadenopathy is mildly improved fr om prior exam. No pulmonary embolus. No aortic aneurysm or dissection. Minimal pericardial fluid note d. No pleural effusions. Stable emphysematous change and minimal interstitial thickening in the right upper lobe. No suspiciou s pulmonary nodule identified. Calcified right lower lobe granuloma present. Status post left mastectomy. The liver, spleen, pancreas, gallbladder, adrenals and kidneys are within normal limits. There are ex tensive atherosclerotic calcifications of the aorta and iliac vessels. No lymphadenopathy. No bowel obstruction or bowel wall thickening. There is no evidence to suggest acute appendicitis. Urinary bladder is unremarkable. No pelvic mass seen. There is trace pelvic ascites. Impression: Interval improvement in right hilar soft tissue thickening and subcarinal lymphadenopathy, compatible with partial response to therapy. Status post left mastectomy. Reviewed, dictated and finalized at location . Impression: Interval improvement in right hilar soft tissue thickening and subcarinal lymph adenopathy, compatible with partial response to therapy. Status post left mastectomy.
[2025-05-19 08:00] LABS: Estimated Glomerular Filt Rate 55
--- NOTE | 2025-05-19 08:15 | ECG_ITS ---
Test Date: 2025-05-19 08:21:21 Measurements Intervals [place] Rate: 112 P: 0 [place]: 0 QRS: 24 QRSD: 89 T: 61 QT: 330 QTc: 452 Interpretive Statements SINUS TACHYCARDIA WITH FIRST DEGREE AV BLOCK POSSIBLE RIGHT VENTRICULAR CONDUCTION DELAY BORDERLINE ST ABNORMALITY- DIFFUSE LEADS ABNORMAL ECG Compared to ECG 01/23/2025 15:12:49 HEART RATE HAS INCREASED Electronically Signed On 05-19-2025 08:32:10 CDT by Jhonny Brice D.O.
[2025-05-19 09:41] LABS: Basophils Percent Auto 0.8 % (0.2-1.2); Eosinophils Absolute Auto 0.1 K/mm3 (0-0.3); Eosinophils Percent Auto 1.1 % (0-4.4); Hematocrit 33.1 % (37.0-47.0); Hemoglobin 11.6 g/dL (12.0-15.0); Immature Granulocyte Absolute 0.02 K/mm3 (0.00-0.031); Immature Granulocyte Percent A 0.4 % (0-0.5); Lymphocytes Absolute Auto 1.85 K/mm3 (0.9-3.2); Lymphocytes Percent Auto 35.4 % (18.3-44.2); Mean Corpuscular Hemoglobin 39.5 pg (26-34); Mean Corpuscular Volume 112.6 fl (80-100); Monocytes Absolute Auto 0.3 K/mm3 (0.1-0.6); Monocytes Percent Auto 5.4 % (2.6-8.5); Neutrophils Percent Auto 56.9 % (45.5-73.1); Platelet Count Result 127 k/mm3 (150-375); Red Blood Count 2.94 M/mm3 (4.2-5.4); White Blood Count 5.2 K/mm3 (4.5-10.0)
[2025-05-19 10:04] LABS: Macrocytosis 1+ (NORMAL); Platelet Estimate Slightly Decreased (Adequate); Schistocytes None Seen
[2025-05-19 10:31] LABS: Alanine Aminotransferase 20 U/L (6-35); Albumin Level 4.1 g/dL (3.5-5.1); Alkaline Phosphatase 105 U/L (38-126); Anion Gap 11 mmol/L (4-12); Aspartate Amino Transferase 35 U/L (14-36); Bilirubin,Total 0.5 mg/dL (0.2-1.3); Blood Urea Nitrogen 6 mg/dL (7-17); Calcium 9.7 mg/dL (8.4-10.2); Carbon Dioxide 21 mmol/L (22-30); Chloride 96 mmol/L (98-107); Estimated Glomerular Filt Rate 60; Glucose 116 mg/dL (65-110); Potassium 3.7 mmol/L (3.4-5.0); Sodium 128 mmol/L (137-145); Total Protein 7.1 g/dL (6.3-8.2)
[2025-05-20 04:44] LABS: CA 15-3 25 U/mL (<32)
== END 2025-05-19 08:43 | disposition home or self-care (01) ==
PROVIDERS: PCP Family Medicine Adolescent Medicine; Visit Provider Internal Medicine Hematology & Oncology
DX: C50.212 Malignant neoplasm of upper-inner quadrant of left female breast (principal); Z17.0 Estrogen receptor positive status [ER+]
CPT/HCPCS: 36415; 71260; 74177; 80053; 85025; 86300; 93005; Q9967

== ENCOUNTER 2025-08-12 10:47 | Outpatient (CLI) | payer OTHER, SELFPAY ==
--- OUTSIDE RECORDS SUMMARY | 2025-08-12 12:49 | XMS_ITS | Encounter Summary ---
Author Organization [facility] [employer] [facility] Address [address] [place] [address] Care Team Providers Care Dock Coordinator Name Role Phone Dariel Barber MD Primary Care Provider [phone]- [phone] Reason for Visit * Reason Onset Date Comments Rash 08/06/2025 Encounter Details Date Type Department Care Team (Late st Contact Info) Description 08/06/2025 Telephone [facility] Oncology and Hematology - [place] [address] [place] [address] Gabrielle Yung MD [address] [place] [address] Rash Social History Tobacco Use Types Packs/Day Years Used Date Smoking Tobacco: Every Day Cigarettes 1 1.4 Started: 03/11/2024; Last attempted to quit: 12/11/2017 Smokeless Tobacco: Never Alcohol Use Standard Drinks/Week Comments No 0 (1 standard drink = 0.6 oz pur e alcohol) Food Insecurity Answer Date Recorded Patient needs follow up regardin 03/30/2025 Transportation Needs Answer Date Record ed Patient needs follow up regardin 03/30/2025 Housing Stability Answer Date Recorded Social/Environmental Concerns No concerns Utility Needs Answer Date Recorded Patient needs follow up regardin 03/30/2025 Comments No Sex and Gender Information Value Date Recorded Sex Assigned at Not on file 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 Dr. Delaney wants to know if she was prescribed any antibiotics. Will wait for a call back. * Telephone Encounter - Trista Patterson - 08/06/2025 2:11 PM CDT ----- Message from Dr. Gabrielle Yung sent at 08/06/2025 12:36 PM CDT ----- Regarding: RE: Rash on Heal Verzenio can cause rash but usually Drug rash is not limited to one specific body part (Heal in this case). This could be cellulitis. Did urgent care prescribed any antibiotic? Patient should be evaluated by Dr. Prakash to assess the nature of the rash. I don't think this is drug rash as it is limited. ----- Message ----- From: Trista Patterson Sent: 08/05/2025 12:52 PM CDT To: Gabrielle Yung MD Subject: Rash on Heal Patient daughter stopped by today because they took patient to the urgent care for a rash on her heal of her foot that was painful to walk on. Urgent care told them that the rash was most likely fromher medication and that they should give us a call. Patient has been on Verzenio since . They are saying that the rash is painful when she walks. Please advise on what should happen or if this could be related? documented in this encounter Plan of Treatment Upcoming Encounters Date Type Department Care Team (Late st Contact Info) Description 09/22/2025 10:00 AM CDT Office Visit [facility] Oncology and Hematology - [place] [address] [address] [facility] [address] [place] [address] Addison Prakash MD [address] [facility] [address] [place] [address] documented as of this encounter Visit Diagnoses Not on filedocumented in this encounter Care Teams Dock Coordinator Relationship Specialty Start Date End Date Dariel Barber MD PCP - General Family Practice 11/10/17 documented as of this encounter
--- OUTSIDE RECORDS SUMMARY | 2025-08-12 12:49 | XMS_ITS | Clinical Summary ---
Author Organization [facility] Address [address] [facility] [place] [address] Care Team Providers Care Retail Aide Name Role Phone Dariel Barber MD Primary Care Provider [phone]- [phone] Allergies Active Allergy Reactions Criticality Noted Date [...] TABLET BY MOUTH THREE TIMES DAILY NEEDED 10/30/20 19 Active divalproex (DEPAKOTE ER) 250 mg Extended Release 24 hour tablet TAKE 3 TABLETS BY MOUTH ONCE DAILY AT NIGHT AT BEDTIME 12/11/19 20 Active diclofenac sodium (VOLTAREN) 75 mg Tablet, Delayed Release (E.C.) TAKE 1 TABLET BY MOUTH TWICE DAILY 10/29/20 19 Active OXcarbazepine (TRILEPTAL) 300 mg tablet TAKE ONE TABLET BY MOUTH TWICE DAILY 11/14/20 18 Active QUEtiapine (SEROquel) 100 mg tablet Take 100 mg by mouth daily. 03/07/20 22 Active ferrous sulfate 325 mg (65 mg iron) tabletIndicatio ns:Iron deficiency anemia, unspecified iron deficiency anemia type Take 1 tablet by mouth once daily 90 Tablet 2 12/16/19 25 Active anastrozole (ARIMIDEX) 1 mg tabletIndicatio ns:Malignant neoplasm of upper-inner quadrant of left breast in female, estrogen receptor positive (CMS/HCC) Take 1 tablet by mouth once daily 90 Tablet 3 03/18/20 25 Active megestroL (MEGACE) 400 mg/10 mL (40 mg/mL) suspension Take 10 mL (400 mg) by mouth daily. 240 mL 1 07/14/20 25 Active abemaciclib (Verzenio) 150 mg tablet Take 1 Tablet (150 mg) by mouth 2 times daily. 56 Tablet 5 07/14/20 25 Active ondansetron (ZOFRAN ODT) 8 mg Tablet, Rapid Dissolve DISSOLVE 1 TABLET IN MOUTH EVERY 8 HOURS NEEDED FOR NAUSEA AND VOMITING 30 Tablet 08/08/20 25 Active abemaciclib (Verzenio) 150 mg tablet Take 1 Tablet (150 mg) by mouth 2 times daily. 56 Tablet 5 5 1:24 PM CDT 01/24/20 25 025 Discontinued(Re order) megestroL (MEGACE) 400 mg/10 mL (40 mg/mL) suspension Take 10 mL (400 mg) by mouth daily. 240 mL 1 05/26/20 25 025 Discontinued(Re order) ondansetron (ZOFRAN ODT) 8 mg Tablet, Rapid Dissolve DISSOLVE 1 TABLET ON THE TOP OF TONGUE THEN SWALLOW WITH SALIVA EVERY 8 HOURS NEEDED FOR NAUSEA OR VOMITING 30 Tablet 07/03/20 25 025 Discontinued abemaciclib (Verzenio) 150 mg tablet Take 1 Tablet (150 mg) by mouth 2 times daily. 56 Tablet 5 07/14/20 25 025 Discontinued(Re order) Active Problems Problem Noted Date Diagnosed Date Mediastinal lymphadenopathy 01/14/2025 Hilar lymphadenopathy 01/14/2025 Iron deficiency anemia 02/22/2018 Malignant neoplasm of upper- inner quadrant of left breast in female, estrogen receptor positive 11/10/2017 Tobacco use 11/10/2017 Encounters Date Type Department Care Team Description 08/08/2025 [facility] Oncology and Hematology - [place] [address] [address] Addison Prakash MD 08/06/2025 Telephone [facility] Oncology and Hematology - [place] [address] [place] [address] Gabrielle Yung MD Rash 07/30/2025 External Device Data STL ABSTRACTION Provider, Abstract 2025 3:00 PM CDT Office Visit [facility] Pulmonology [address] [place] [address] Wilner Taylor MD Breast cancer, stage 4, left (CMS/HCC) (Primary Dx); Tobacco abuse disorder; Centrilobular emphysema (CMS/HCC) 07/14/2025 11:15 AM CDT Office Visit [facility] Oncology and Hematology - [place] [address] [place] [address] Addison Prakash MD Malignant neoplasm of upper-inner quadrant of left breast in female, estrogen receptor positive (CMS/HCC) (Primary Dx) 07/14/2025 Refill [facility] Oncology and Hematology - [place] [address] [place] [address] Addison Prakash MD 07/14/2025 Refill [facility] Oncology and Hematology - [place] [address] [place] [address] Addison Prakash MD 07/08/2025 External Device Data STL ABSTRACTION Provider, Abstract 07/08/2025 Orders Only [facility] Oncology and Hematology - [place] [address] [place] [address] Addison Prakash MD 07/03/2025 Refill [facility] Oncology and Hematology - [place] [address] [place] [address] Addison Prakash MD 06/11/2025 External Device Data STL ABSTRACTION Provider, Abstract 05/26/2025 11:15 AM CDT Office Visit [facility] Oncology and Hematology - [place] [address] [place] [address] Addison Prakash MD Malignant neoplasm of upper-inner quadrant of left breast in female, estrogen receptor positive (CMS/HCC) (Primary Dx) 05/20/2025 Orders Only [facility] Oncology and Hematology - [place] [address] [place] [address] Addison Prakash MD 05/19/2025 Orders Only [facility] Oncology and Hematology - [place] [address] [place] [address] Addison Prakash MD 05/14/2025 External Device Data STL ABSTRACTION Provider, Abstract from Last 3 Months Family History Medical [...] on file 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[employer] Gender Identity Not on file Sexual Orientation Not on file Last Filed Vital Signs Vital Sign Reading Time Taken Comments Blood Pressure 116/56 2025 3:33 PM CDT Pulse 107 2025 3:33 PM CDT Temperature 36.2 C (97.2 F) 07/14/2025 11:01 AM CDT Respiratory Rate 15 07/14/2025 11:01 AM CDT Oxygen Saturation 97% 2025 3:33 PM CDT Inhaled Oxygen Concentration - - Weight 66.7 kg (147 lb) 2025 3:33 PM CDT Height 167.6 cm (5' 6) 2025 3:33 PM CDT Body Mass Index 23.73 2025 3:33 PM CDT Plan of Treatment Upcoming Encounters Date Type Department Care Team (Late st Contact Info) Description 09/22/2025 10:00 AM CDT Office Visit [facility] Oncology and Hematology - [place] [address] [facility] [address] [place] [address] Addison Prakash MD [address] [facility] [address] [place] [address] Health Maintenance Due Date Last Done Comments COLORECTAL SCREENING 2001 Colorectal Cancer Screening 2001 FIT-DNA Q 3 years 2001 FIT/FOBT Q 1 year 2001 Flex Sig/CT Colonography Q 5 years 2001 RSV VACCINE (60+ or ) (1 - Risk 60-74 years 1-dose series) 2016 OSTEOPOROSIS SCREENING 2021 DTAP/TDAP/TD VACCINES (2 - T d or Tdap) 06/17/2024 06/17/2014 BREAST CANCER SCREENING 05/24/2025 05/24/20 24, 02/05/2021, 02/05/2021, Additional history exists INFLUENZA VACCINE (#1) 2025 12/14/2019 PNEUMOCOCCAL VACCINE 50+ YEARS Completed 05/19/2022 ZOSTER VACCINE Completed 08/26/2022, 05/19/2022 Procedures Procedure Name Priority Date/Time Associated Diagnosis Comments CHG CA 15 3 Routine 07/07/2025 12:57 PM CDT COMPREHENSIVE METABOLIC PANEL Routine 07/07/2025 11:39 AM CDT CANCER ANTIGEN 15-3 Routine 05/19/2025 1 2:30 PM CDT COMPREHENSIVE METABOLIC PANEL Routine 05/19/2025 12:[address] CHEST ABDOMEN PELVIS W CONT Routine 05/19/2025 9:57 AM CDT MAMMO SCREENING UNILATERAL RIGHT Routine 05/24/2024 11:56 AM CDT from Last 3 Months or Most Recently Relevant to Health Maintenance Results * CHG CA 15 3 (07/07/2025 12:57 PM CDT) Result [facility] us Addison Prakash MD CHG - LABORATORY Final Result * COMPREHENSIVE METABOLIC PANEL (07/07/2025 11:39 AM CDT) Only the most recent of2 resultswithin the time period is included. Blood us Addison Prakash MD CHEMISTRY ORDERABLES Final Resu lt * CANCER ANTIGEN 15-3 (05/19/2025 12:30 PM CDT) Blood us Addison Prakash MD CHEMISTRY ORDERABLES Final Resu lt * CT CHEST ABDOMEN PELVIS W CONT (05/19/2025 9:57 AM CDT) Anatomical Region Laterality Modality Chest Computed Tomogra phy us Addison Prakash MD CT ORDERABLES Final Result * MAMMO SCREENING UNILATERAL RIGHT (05/24/2024 11:56 AM CDT) Anatomical Region Laterality Modality Breast Right Mammography Annmarie Aritaac HUMAN RESOURCES SAFETY MANAGER MAMMO ORDERABLES Final Result from Last 3 Months or Most Recently Relevant to Health Maintenance Insurance [employer] PPO MCR RX [employer] Medicare Part D RX [employer] Commercial Care Teams Retail Aide Relationship Specialty Start Date End Date Dariel Barber MD PCP - General Family Practice 11/10/17
--- NOTE | 2025-08-22 12:16 | WPDHOLTEREM ---
Holter/Event Monitor Holter/Event Monitor Date of procedure: 08/12/25 Holter/Event Procedure: 3-7 Day Holter Monitor Indications: Tachycardia Conclusion: 1. 4 days holter monitor on 08/12/25. 2. Predominant rhythm is sinus rhythm. HR range 71-203 bpm; average HR 100 bpm. 3. There are rare premature supraventricular complexes and rare supraventricular couplets. There is 1 episode of supraventricular tachycardia at 203 bpm lasting 13 seconds. 4. There are rare premature ventricular complexes. No ventricular tachycardia. 5. No significant pauses greater than 3 seconds. 6. No symptoms available for correlation.
== END 2025-08-12 10:48 | disposition home or self-care (01) ==
PROVIDERS: PCP Nurse Practitioner Family; Visit Provider Nurse Practitioner Family
DX: R00.0 Tachycardia, unspecified (principal)
CPT/HCPCS: 93242

== ENCOUNTER 2025-09-15 08:26 | Outpatient (CLI) | payer OTHER, SELFPAY ==
[2025-09-15 08:40] LABS: Hematocrit 27.4 % (37.0-47.0); Hemoglobin 9.8 g/dL (12.0-15.0); Immature Granulocyte Percent A 0.4 % (0-0.5); Lymphocytes Absolute Auto 3.17 K/mm3 (0.9-3.2); Mean Corpuscular HGB Conc 35.8 g/dl (32-36); Mean Corpuscular Hemoglobin 43.0 pg (26-34); Mean Corpuscular Volume 120.2 fl (80-100); Nucleated Red Blood Cells Absolute Auto 0.000 K/mm3 (0.0-0.012); Nucleated Red Blood Cells Perc 0.0 % (0.0-0.2); Platelet Count Result 158 k/mm3 (150-375); Red Blood Count 2.28 M/mm3 (4.2-5.4); White Blood Count 8.0 K/mm3 (4.5-10.0)
--- OUTSIDE RECORDS SUMMARY | 2025-09-15 08:40 | XMS_ITS | Clinical Summary ---
Author Organization [facility] Address [address] [facility] [place] [address] Care Team Providers Care Barrel Repairer Name Role Phone Dariel Barber MD Primary Care Provider [phone]- [phone] Allergies Active Allergy Reactions Criticality Noted Date [...] mg by mouth daily. 03/07/20 22 Active anastrozole (ARIMIDEX) 1 mg tabletIndicatio ns:Malignant [...] NEEDED FOR NAUSEA AND VOMITING 30 Tablet 09/02/20 25 Active Iron, Ferrous Sulfate, 325 mg (65 mg iron) tabletIndicatio ns:Iron deficiency anemia, unspecified iron deficiency anemia type Take 1 tablet by mouth once daily 90 Tablet 09/02/20 25 Active ferrous sulfate 325 mg (65 mg iron) tabletIndicatio ns:Iron deficiency anemia, unspecified iron deficiency anemia type Take 1 tablet by mouth once daily 90 Tablet 2 12/16/19 25 025 Discontinued ondansetron (ZOFRAN ODT) 8 mg Tablet, Rapid Dissolve DISSOLVE 1 TABLET IN MOUTH EVERY 8 HOURS NEEDED FOR NAUSEA AND VOMITING 30 Tablet 08/08/20 25 025 Discontinued Active Problems Problem Noted Date Diagnosed Date Mediastinal lymphadenopathy 01/14/2025 Hilar lymphadenopathy 01/14/2025 Iron deficiency anemia 02/22/2018 Malignant neoplasm of upper- inner quadrant of left breast in female, estrogen receptor positive 11/10/2017 Tobacco use 11/10/2017 Encounters Date Type Department Care Team Description 09/02/2025 [facility] Oncology and Hematology - [place] [address] [place] [address] Addison Prakash MD Iron deficiency anemia, unspecified iron deficiency anemia type 08/12/2025 External Device Data STL ABSTRACTION Provider, Abstract 08/08/2025 [facility] Oncology and Hematology - [place] [address] [place] [address] Addison Prakash MD 08/06/2025 Telephone [facility] Oncology and Hematology - [place] [address] [place] [address] Gabrielle Yung MD Rash 07/30/2025 External Device Data STL ABSTRACTION Provider, Abstract 2025 3:00 PM CDT Office Visit [facility] Pulmonology [place] [id number] [facility] [address] [place] [address] Wilner Taylor MD Breast cancer, stage 4, left (CMS/HCC) (Primary Dx); Tobacco abuse disorder; Centrilobular emphysema (CMS/HCC) 07/14/2025 11:15 AM CDT Office Visit [facility] Oncology and Hematology - [place] [address] [place] [address] Addison Prakash MD Malignant neoplasm of upper-inner quadrant of left breast in female, estrogen receptor positive (CMS/HCC) (Primary Dx) 07/14/2025 Refill [facility] Oncology and Hematology - [place] [address] [place] [address] Addison Prakash MD 07/14/2025 Refill [facility] Oncology and Hematology - [place] [address] [place] [address] Addison Prakash MD 07/08/2025 External Device Data STL ABSTRACTION Provider, Abstract 07/08/2025 Orders Only [facility] Oncology and Hematology - [place] [address] [place] [address] Addison Prakash MD 07/03/2025 Refill [facility] Oncology and Hematology - [place] [address] [place] [address] Addison Prakash MD from Last 3 Months Family History Medical History Relation Name Comments Unknown Brother Unknown Father Unknown Mother Unknown Sister Relation Name Status Comments Brother Alive Father Mother Alive Sister Alive Social History Tobacco Use Types Packs/Day Years Used Date Smoking Tobacco: Every Day Cigarettes 1 1.5 Started: 03/11/2024; Last attempted to quit: 12/11/2017 [...] on file 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[employer] Gender Identity Not on file Sexual Orientation [...] Description 09/22/2025 10:00 AM CDT Office Visit [facility] Oncology and Hematology - [place] [address] [facility] [address] [place] [address] Addison Prakash MD [address] [facility] [address] [place] [address] Health Maintenance Due Date Last Done Comments COLORECTAL SCREENING 2001 Colorectal Cancer Screening 2001 FIT-DNA Q 3 years 2001 FIT/FOBT Q 1 year 2001 Flex Sig/CT Colonography Q 5 years 2001 RSV VACCINE (60+ or ) (1 - Risk 50-74 years 1-dose series) 2006 OSTEOPOROSIS SCREENING 2021 DTAP/TDAP/TD VACCINES (2 - T d or Tdap) 06/17/2024 06/17/2014 [place] ([place]) Preventative Visit/Annual Wellness Visit 11/27/2024 BREAST CANCER SCREENING 05/24/2025 05/24/20 24, 02/05/2021, 02/05/2021, Additional history exists INFLUENZA VACCINE (#1) 2025 12/14/2019 PNEUMOCOCCAL VACCINE 50+ YEARS Completed 05/19/2022 ZOSTER VACCINE Completed 08/26/2022, 05/19/2022 Procedures Procedure Name Priority Date/Time Associated Diagnosis Comments CHG CA 15 3 Routine 07/07/2025 12:57 PM CDT COMPREHENSIVE METABOLIC PANEL Routine 07/07/2025 11:39 AM CDT MAMMO SCREENING UNILATERAL RIGHT Routine 05/24/2024 11:56 AM CDT from Last 3 Months or Most Recently Relevant to Health Maintenance Results * CHG CA 15 3 (07/07/2025 12:57 PM CDT) us Addison Prakash MD CHG - LABORATORY Final Result * COMPREHENSIVE METABOLIC PANEL (07/07/2025 11:39 AM CDT) Blood us Addison Prakash MD CHEMISTRY ORDERABLES Final Resu lt * MAMMO SCREENING UNILATERAL RIGHT (05/24/2024 11:56 AM CDT) Anatomical Region Laterality Modality Breast Right Mammography Annmarie MONTANOP MAMMO ORDERABLES Final Result from Last 3 Months or Most Recently Relevant to Health Maintenance Insurance ESSENCE PPO [facility] ESSENCE PPO [employer] RX [employer] Medicare Part D [employer] Commercial Care Teams Barrel Repairer Relationship Specialty Start Date End Date Dariel Barber MD PCP - General Family Practice 11/10/17
[2025-09-15 09:36] LABS: Alanine Aminotransferase 19 U/L (6-35); Albumin Level 4.2 g/dL (3.5-5.1); Alkaline Phosphatase 101 U/L (38-126); Anion Gap 12 mmol/L (4-12); Aspartate Amino Transferase 27 U/L (14-36); Bilirubin,Total 0.7 mg/dL (0.2-1.3); Blood Urea Nitrogen 9 mg/dL (7-17); Calcium 9.4 mg/dL (8.4-10.2); Carbon Dioxide 20 mmol/L (22-30); Chloride 95 mmol/L (98-107); Estimated Glomerular Filt Rate > 60; Glucose 130 mg/dL (65-110); Potassium 3.6 mmol/L (3.4-5.0); Sodium 127 mmol/L (137-145); Total Protein 7.5 g/dL (6.3-8.2)
== END 2025-09-15 08:27 | disposition home or self-care (01) ==
LOC: ANHLAB 08:26
PROVIDERS: PCP Nurse Practitioner Family; Visit Provider Internal Medicine Hematology & Oncology
DX: C50.212 Malignant neoplasm of upper-inner quadrant of left female breast (principal); Z17.0 Estrogen receptor positive status [ER+]
CPT/HCPCS: 36415; 80053; 85025; 86300

== ENCOUNTER 2025-09-15 08:58 | Outpatient (CLI) | payer OTHER, SELFPAY ==
--- NOTE | ~2025-09-15 | CT_ITS ---
CT chest abdomen pelvis w con HISTORY: MAL AILIN OF UPPER OUTER QUAD OF BREAST . COMPARISON: 05/19/2025 TECHNIQUE: Axial images of the chest, abdomen and pelvis were obtained without and with infusion of 100 Isovue 300. FINDINGS: CT CHEST: The examination demonstrates no pulmonary nodules, infiltrates and/or effusions. Soft tissue prominence around the right main pulmonary artery and hilum are stable. Subcarinal lymph node is stable measuring 12 x 8 mm. Cardiac size and mediastinal configuration are normal in appearance. Small pericardial effusion is noted. The pulmonary artery and thoracic aorta are normal in caliber and patency. Osseous structures are intact. The visualized organs of the upper abdomen are unremarkable. IMPRESSION: No acute cardiopulmonary process. No pathologic enhancement is noted. Soft tissue prominence around the right pulmonary artery and hilum as well as the subcarinal lymph nodes are stable. CT abdomen and pelvis with contrast: The liver parenchyma is unremarkable. Mild intrahepatic biliary duct dilatation is noted. The gallbladder is unremarkable. The pancreas and spleen are normal in appearance. The adrenal glands are symmetric in size. The kidneys demonstrate symmetric uptake and excretion of contrast. No cystic mass is evident. There is no solid mass. There is no hydronephrosis. There are fluid scattered throughout the bowel loops. No bowel obstruction. There is moderate stool retention in the sigmoid and rectum suggestive of constipation. There are colonic diverticulosis without evidence of acute diverticulitis.There is focal circumferential thickening of the sigmoid colon se en on axial image 215. This can be fully evaluated with colonoscopy if clinically indicated. Bladder is unremarkable. No free intraperitoneal fluid or air is evident. There is no significant retroperitoneal lymphadenopathy. The aorta, visceral vessels and renal arteries demonstrate normal caliber and patency. The lower thoracic and lumbar vertebrae are in normal alignment. IMPRESSION: Nonspecific mild intrahepatic biliary duct dilatation. There is focal circumferential thickening of the sigmoid colon. This can be further evaluated with colonoscopy. Colonic diverticulosis without evidence of acute diverticulitis. All CT scans at this facility are performed using low dose modulation techniques as appropriate to perform exam including the following: automated exposure control; use of iterative reconstruction technique; adjustment of the mA and/or kV according to patient size (this includes techniques or standardized protocols for targeted exams where dose is matched to indication/reason for exam) Reviewed, dictated and finalized at location S. IMPRESSION: No acute cardiopulmonary process. No pathologic enhancement is noted. Soft tissue prominence around the right pulmonary artery and hilum as well as t he subcarinal lymph nodes are stable. CT abdomen and pelvis with contrast: The liver parenchyma is unremarkable. Mild intrahepatic biliary duct dilatation is noted. The gallbladder is unremarkable. The pancreas and spleen are normal in appearance. The adrenal glands are symmetric in size. The kidneys demonstrate symmetric uptake and excretion of contrast. No cystic m ass is evident. There is no solid mass. There is no hydronephrosis. There are fluid scattered throughout the bowel loops. No bowel obstruction. The re is moderate stool retention in the sigmoid and rectum suggestive of constipa tion. There are colonic diverticulosis without evidence of acute diverticulitis .There is focal circumferential thickening of the sigmoid colon seen on axial i mage 215. This can be fully evaluated with colonoscopy if clinically indicated. Bladder is unremarkable. No free intraperitoneal fluid or air is evident. Ther e is no significant retroperitoneal lymphadenopathy. The aorta, visceral vessels and renal arteries demonstrate normal caliber and p atency. The lower thoracic and lumbar vertebrae are in normal alignment. IMPRESSION: Nonspecific mild intrahepatic biliary duct dilatation. There is focal circumferential thickening of the sigmoid colon. This can be fur ther evaluated with colonoscopy. Colonic diverticulosis without evidence of acute diverticulitis. All CT scans at this facility are performed using low dose modulation techniqu es as appropriate to perform exam including the following: automated exposure c ontrol; use of iterative reconstruction technique; adjustment of the mA and/or kV according to patient size (this includes techniques or standardized protocol s for targeted exams where dose is matched to indication/reason for exam)
[2025-09-15 09:25] LABS: Estimated Glomerular Filt Rate > 60
== END 2025-09-15 08:59 | disposition home or self-care (01) ==
PROVIDERS: PCP Nurse Practitioner Family; Visit Provider Internal Medicine Hematology & Oncology
DX: N63.11 Unspecified lump in the right breast, upper outer quadrant (principal); K57.30 Diverticulosis of large intestine without perforation or abscess without bleeding
CPT/HCPCS: 71260; 74177; Q9967

== ENCOUNTER 2025-09-22 10:51 | Outpatient (CLI) | payer OTHER, SELFPAY ==
--- OUTSIDE RECORDS SUMMARY | 2025-09-22 10:00 | XMS_ITS | Encounter Summary ---
Author Organization [facility] Address [address] [place] [address] Care Team Providers Care Pet Stylist Name Role Phone Dariel Barber MD Primary Care Provider [phone]- [phone] Reason for Visit * Reason Comments Cancer Follow Up Encounter Details Date Type Department Care Team (Late st Contact Info) Description 09/22/2025 10:00 AM CDT Office Visit [facility] Oncology and Hematology - [place] [address] [place] [address] [facility] [address] [place] [address] Addison Prakash MD [address] 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 Gender Identity Not on file Sexual Orientation Not on file documented as of this encounter Last Filed Vital Signs Vital Sign Reading Time Taken Comments Blood Pressure 109/58 09/22/2025 10:11 AM CDT Pulse 103 09/22/2025 10:11 AM CDT Temperature 36.2 C (97.2 F) 09/22/2025 10:11 AM CDT Respiratory Rate 16 09/22/2025 10:11 AM CDT Oxygen Saturation 98% 09/22/2025 10:11 AM CDT Inhaled Oxygen Concentration - - Weight 59.9 kg (132 lb) 09/22/2025 10:11 AM CDT Height - - Body Mass Index 21.31 2025 3:33 PM CDT documented in this encounter Progress Notes * Addison Prakash MD - 09/22/2025 11:03 AM CDT HEMATOLOGY / ONCOLOGY PROGRESS NOTE Patient Identification: Name: Emmy Higgins Age: 70 y.o. Sex: female : 1955 DIAGNOSIS Metastatic breast cancer status post right upper lobe lung mass biopsy and lymph node biopsy done on January 14, 2025 came back positive for metastatic adenocarcinoma with breast primary ER/MA positive HER2/ayleen negative. 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 TREATMENT HISTORY Status post left-sided mastectomy and sentinel lymph node excision done on September 29, 2017 Adjuvant chemotherapy with Adriamycin, Cytoxan and Taxol completed April 13, 2018 SUBJECTIVE Patient came to the office for follow-up visit. She started eating better and has gained 5 pound weight. Denies any bone pain. Denies any neuropathy. No chest pain and shortness of breath. Patient has intermittent diarrhea and constipation. No other new complaints. Review of system Constitutional: denies fevers, sweats, now eating better and gained 5 pound weight. Mild tiredness and fatigue HEENT: denies sinus congestion, hearing or vision problems Respiratory: denies cough, dyspnea, wheeze Cardiovascular: denies chest pain, exertional chest pressure/discomfort, nausea, syncope, shortnessof breath GI: denies constipation,dsyphagia, reflux symptoms, vomiting, melena, complain of intermittent diarrhea and constipation : denies dysuria, frequency, incontinence, urgency Integumentary system: no lymphadenopathy, sweats, flushing Musculoskeletal: denies: myalgia, arthralgia Neurological: denies blurry or disturbed vision, numbness/weakness, dizziness Skin: No lumps, bumps or rashes. 12 point review of system was reviewed Objective: Vital signs in last 24 hours: As per nursing note Exam: General appearance: alert, cooperative, no distress, appears stated age Head: normocephalic, without obvious abnormality, atraumatic Eyes: conjunctivae/corneas clear, EOM's intact Ears: normal external ear canals AU Nose: Nares normal. Septum midline. Mucosa normal. No drainage or sinus tenderness Throat: Lips, mucosa, and tongue normal. Teeth and gums normal Neck: supple, symmetrical, trachea midline. Lungs: clear to auscultation bilaterally Heart: regular rate and rhythm, S1, S2 normal, no murmur, click, rub or gallop Abdomen: soft, non-tender. Bowel sounds normal. No masses, No organomegaly Extremities: extremities normal, atraumatic, no cyanosis or edema Skin: Skin color, texture, turgor normal. No rashes or lesions Lymph nodes: No lymphadenopathy Neuro: No obvious focal deficit Exam as above PATH LABS Labs from December 17 show WBC 7.2 hemoglobin 13.3 platelet 302,000 calcium 10.2 total bili 0.3 creatinine 0.7 CA-27-29 was 16. Labs from August 19 showed WBC 11.1 hemoglobin 14.1 platelet 319,000 creatinine 0.8 CA 15-3 11 Labs from March 09, 2022 showed creatinine 1.4 total bilirubin 0.2 WBC 10.1 hemoglobin 14.3 platelet 314,000 CA 15-3 12 Labs from August 26 showed WBC 9.1 hemoglobin 15.9 platelet 291,000 creatinine 0.9 CA 15-3 24 Labs from April 11 showed creatinine 0.8 total bilirubin 0.6 WBC 10.3 hemoglobin 14.9 platelet 274,000 CA 15-3 30 Labs from December 04 showed WBC 10.4 hemoglobin 15.5 platelet count 333,000 CA 15-3 elevated at 62 Labs from February 26 showed creatinine 0.8 total bilirubin 0.5 AST 44 ALT 70 WBC 6.6 hemoglobin 12.5 platelet 137,000 CA 15-3 46 Labs from showed WBC 6.4 hemoglobin 12 platelet 164,000 creatinine 0.9 total bilirubin 0.4 CA 15-3 53 Labs from May 19 showed creatinine 0.9 sodium 128 bilirubin 0.5 hemoglobin 11.6 CA 15-3 25 Labs from July 07 showed sodium 130 hemoglobin 11.6 CA 15-3 37 Labs from September 15 showed creatinine 0.6 bilirubin 0.7 hemoglobin 9.8 WBC 8 platelet 158,000 CA 15-3 36.1. Assessment: Plan: Patient Active Problem List Diagnosis Date Noted Mediastinal lymphadenopathy 01/14/2025 Hilar lymphadenopathy 01/14/2025 Iron deficiency anemia 02/22/2018 Malignant neoplasm of upper-inner quadrant of left breast in female, estrogen receptor positive (CMS/HCC) 11/10/2017 Tobacco use 11/10/2017 Metastatic breast cancer status post right upper lobe lung mass biopsy and lymph node biopsy done on January 14, 2025 came back positive for metastatic adenocarcinoma with breast primary ER/MA positive HER2/ayleen negative. Patient was originally diagnosed with poorly differentiated invasive ductal carcinoma of the left breast stage IIB disease. Patient is on endocrine therapy with Arimidex started April 2018. She scan chest abdomen and pelvis was done due to rising breast cancer tumor marker on December 10, 2024 that showed mediastinal and right hilar lymphadenopathy with mild stenosis of the central rightupper lobe bronchi and more significant stenosis of the right upper lobe pulmonary artery concerning for metastatic disease. There is no other evidence of metastatic disease in the abdomen and pelvis. Patient started verzenio 150 mg twice a day on February 02, 2025. CT scan chest abdomen pelvis done on September 15, 2025 showed no evidence of active malignancy. Tumor marker stable. Patient will continue verzenio 150 mg twice a day and follow-up in [address] scan will bedone in 4 months. Anorexia and weight loss. Patient has been eating better and will continue Megace. Tachycardia and hypertension. Stable. Bone health. Continue vitamin D. Hyponatremia. Stable. Anemia. I will check iron and B12 level today. We will call in 1 week to discuss labs. Follow-up with labs in 2 months as well. 09/22/2025 Addison Prakash MD documented in this encounter Plan of Treatment Upcoming Encounters Date Type Department Care Team (Late st Contact Info) Description 09/29/2025 4:30 PM KOSHER BUTCHER Telephone Check Up [facility] Oncology and Hematology [place] [address] [place] [address] Addison Prakash MD [address] [employer] [address] [place] [address] 12/01/2025 10:00 AM KOSHER BUTCHER Office Visit [facility] Oncology and Hematology [facility] [address] [place] [address] [place] [address] [place] [address] [employer] [address] [place] [address] Scheduled Orders Name Type Priority Associated Diagnoses Orde r Schedule METHYLMALONIC ACID Lab Routine Chronic anemia Expected: 09/22/2025, Expires: 09/22/2026 VITAMIN B12 AND FOLATE Lab Routine Chronic anemia Expected: 09/22/2025, Expires: 09/22/2026 TSH Lab Routine Chronic anemia Expected: 09/22/2025, Expires: 09/22/2026 FERRITIN Lab Routine Chronic anemia Expected: 09/22/2025, Expires: 09/22/2026 IRON, TIBC, AND PERCENT SATURATION Lab Routine Chronic anemia Expected: 09/22/2025, Expires: 09/22/2026 CANCER ANTIGEN 15-3 Lab Routine Malignant neoplasm of upper-inner quadrant of left breast in female, estrogen receptor positive (CMS/HCC) Expected: 11/17/2025, Expires: 09/22/2026 CBC WITH DIFFERENTIAL Lab Stat Malignant neoplasm of upper-inner quadrant of left breast in female, estrogen receptor positive (CMS/HCC) Expected: 11/17/2025, Expires: 09/22/2026 COMPREHENSIVE METABOLIC PANEL Lab Stat Malignant neoplasm of upper-inner quadrant of left breast in female, estrogen receptor positive (CMS/HCC) Expected: 11/17/2025, Expires: 09/22/2026 documented as of this encounter Visit Diagnoses Diagnosis Chronic anemia- Primary Anemia, unspecified Malignant neoplasm of upper-inner quadrant of left breast in female, estrogen receptor positive (CMS/HCC) documented in this encounter Care Teams Pet Stylist Relationship Specialty Start Date End Date Dariel Barber MD PCP - General Family Practice 11/10/17 documented as of this encounter
--- OUTSIDE RECORDS SUMMARY | 2025-09-22 12:20 | XMS_ITS | Encounter Summary ---
Author Organization 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 Gender Identity Not on file Sexual Orientation Not on file documented as of this encounter Plan of Treatment Upcoming Encounters Date Type Department Care Team (Late st Contact Info) Description 09/29/2025 4:30 PM PHP DEVELOPER Telephone Check Up [facility] Oncology and Hematology [place] [address] [place] [address] [address] [place] [address] Addison Prakash MD [address] [facility] [address] [place] [address] 12/01/2025 10:00 AM PHP DEVELOPER Office Visit [facility] Oncology and Hematology [facility] [address] [place] [address] Addison Prakash MD [address] [facility] [address] [place] [address] documented as of this encounter Procedures Procedure Name Priority Date/Time Associated Diagnosis Comments CHG CA 15 3 Routine 09/15/2025 9:47 AM CDT documented in this encounter Results * CHG CA 15 3 (09/15/2025 9:47 AM CDT) Addison Prakash MD CHG - LABORATORY Final Result documented in this encounter Visit Diagnoses Not on filedocumented in this encounter Care Teams Telephoto Installer Relationship Specialty Start Date End Date Dariel Barber MD PCP - General Family Practice 11/10/17 documented as of this encounter
--- OUTSIDE RECORDS SUMMARY | 2025-09-22 12:21 | XMS_ITS | Clinical Summary ---
Author Organization [facility] Address [address] [facility] [place] [address] Care Team Providers Care Diplomatic Interpreter/Translator Name Role Phone Dariel Barber MD Primary Care Provider [phone]- [phone] Allergies Active Allergy Reactions Criticality Noted Date [...] Encounters Date Type Department Care Team Description 09/22/2025 10:00 AM CDT Office Visit [facility] Oncology and Hematology - [place] [place] [phone] Addison Prakash MD Chronic anemia (Primary Dx); Malignant neoplasm of upper-inner quadrant of left breast in female, estrogen receptor positive (CMS/HCC) 09/17/2025 Orders Only [facility] Oncology and Hematology - [address] [place] [address] Addison Prakash MD 09/16/2025 Orders Only [facility] Oncology and Hematology [facility] [address] [place] [phone] Addison Prakash MD 09/02/2025 Refill [facility] Oncology and Hematology - [address] [place] [id number] Addison Prakash MD Iron deficiency anemia, unspecified iron deficiency anemia type 08/12/2025 External Device Data STL ABSTRACTION Provider, Abstract 08/08/2025 Refill [facility] Oncology and Hematology [facility] [address] [place] [id number] Addison Prakash MD 08/06/2025 Telephone [facility] Oncology and Hematology [facility] [address] [place] [phone] Gabrielle Yung MD Rash 07/30/2025 External Device Data STL ABSTRACTION Provider, Abstract 2025 3:00 PM CDT Office Visit [facility] Pulmonology [address] [place] [address] Wilner Taylor MD Breast cancer, stage 4, left (CMS/HCC) (Primary Dx); Tobacco abuse disorder; Centrilobular emphysema (CMS/HCC) 07/14/2025 11:15 AM CDT Office Visit [facility] Oncology and Hematology [facility] [address] [place] [address] Addison Prakash MD Malignant neoplasm of upper-inner quadrant of left breast in female, estrogen receptor positive (CMS/HCC) (Primary Dx) 07/14/2025 Refill [facility] Oncology and Hematology [facility] [address] [place] [address] Addison Prakash MD 07/14/2025 Refill [facility] Oncology and Hematology [address] [place] [address] Addison Prakash MD 07/08/2025 External Device Data STL ABSTRACTION Provider, Abstract 07/08/2025 Orders Only [facility] Oncology and Hematology [facility] [address] [place] [address] Addison Prakash MD 07/03/2025 Refill [facility] Oncology and Hematology - [address] [place] [address] Addison Prakash MD from Last 3 Months [...] on file Legal Sex Female 12:01 PM HAND [employer] Gender Identity Not on file Sexual Orientation [...] (132 lb) 09/22/2025 10:11 AM CDT Height 167.6 cm (5' 6) 2025 3:33 PM CDT Body Mass Index 21.31 2025 3:33 PM CDT Plan of Treatment Upcoming Encounters Date Type Department Care Team (Late st Contact Info) Description 09/29/2025 4:30 PM HAND [employer]OLIN MAKER Telephone Check Up [facility] Oncology and [facility] [address] [place] [address] Addison Prakash MD [address] [facility] [employer] [address] [place] [address] 12/01/2025 10:00 AM HAND [employer]OLIN [employer] Office Visit [facility] Oncology [facility] [address] [place] [address] Addison Prakash MD [address] [facility] [employer] [address] [place] [address] Health Maintenance Due Date Last Done Comments DTAP/TDAP/TD VACCINES (1 - Tdap) 1975 PNEUMOCOCCAL VACCINE 50+ YEA RS (1 of 2 - PCV) 1975 COLORECTAL SCREENING 2001 Colorectal Cancer Screening 2001 FIT-DNA Q 3 years 2001 FIT/FOBT Q 1 year 2001 Flex Sig/CT Colonography Q 5 years 2001 RSV VACCINE (60+ or ) (1 - Risk 50-74 years 1-dose series) 2006 ZOSTER VACCINE (1 of 2) 2006 OSTEOPOROSIS SCREENING 2021 Medicare Advantage ([place]) Preventative Visit/Annual Wellness Visit 11/27/2024 BREAST CANCER SCREENING 05/24/2025 05/24/20 24, 02/05/2021, 02/05/2021, Additional history exists INFLUENZA VACCINE (#1) 2025 Procedures Procedure Name Priority Date/Time Associated Diagnosis Comments COMPREHENSIVE METABOLIC PANEL Routine 09/15/2025 1:[address] CHEST ABDOMEN PELVIS W CONT Routine 09/15/2025 12:19 PM CDT CHG CA 15 3 Routine 09/15/2025 9:47 AM CDT CHG CA 15 3 Routine 07/07/2025 12:57 PM CDT COMPREHENSIVE METABOLIC PANEL Routine 07/07/2025 11:39 AM CDT MAMMO SCREENING UNILATERAL RIGHT Routine 05/24/2024 11:56 AM CDT from Last 3 Months or Most Recently Relevant to Health Maintenance Results * COMPREHENSIVE METABOLIC PANEL (09/15/2025 1:32 PM CDT) Only the most recent of2 resultswithin the time period is included. Blood us Addison Prakash MD CHEMISTRY ORDERABLES Final Resu lt * CT CHEST ABDOMEN PELVIS W CONT (09/15/2025 12:19 PM CDT) Anatomical Region Laterality Modality Chest Computed Tomogra phy us Addison Prakash MD CT ORDERABLES Final Result * CHG CA 15 3 (09/15/2025 9:47 AM CDT) Only the most recent of2 resultswithin the time period is included. us Addison Prakash MD CHG - LABORATORY Final Result * MAMMO SCREENING UNILATERAL RIGHT (05/24/2024 11:56 AM CDT) Anatomical Region Laterality Modality Breast Right Mammography Annmarie Aritaac MEDICAL STAFF COORDINATOR MAMMO ORDERABLES Final Result from Last 3 Months or Most Recently Relevant to Health Maintenance Insurance [place] [id number] [employer] Medicare Part D [employer] Commercial Care Teams Diplomatic Interpreter/Translator Relationship Specialty Start Date End Date Dariel Barber MD PCP - General Family Practice 11/10/17
[2025-09-22 14:58] LABS: Iron 108 ug/dL (37-170)
[2025-09-22 15:07] LABS: Thyroid Stimulating Hormone 0.246 uIU/mL (0.465-4.680)
[2025-09-22 15:14] LABS: Percent Iron Saturation 45 % (20-50)
[2025-09-22 15:42] LABS: Ferritin 905.00 ng/mL (11.1-264)
[2025-09-22 15:43] LABS: Vitamin B12 368.0 pg/mL (239-931)
== END 2025-09-22 10:52 | disposition home or self-care (01) ==
PROVIDERS: PCP Nurse Practitioner Family; Visit Provider Internal Medicine Hematology & Oncology
DX: D64.9 Anemia, unspecified (principal)
CPT/HCPCS: 36415; 82607; 82728; 82746; 83540; 83550; 84443